=== PATIENT | male | born 1980 | race Caucasian/White ===

== ENCOUNTER 2017-05-08 18:06 | Emergency (ER) | payer OTHER ==
[~2017-05-08] VITALS: Ht 180.3 cm; Wt 72.7 kg
[2017-05-08 18:06] VITALS: BP 117/79
[2017-05-08] MEDS ORDERED: TYLE325T5 PO (18:25)
[2017-05-08] MEDS ORDERED: IBUPROFEN 600 MG TAB PO ONE (19:45)
--- NOTE | 2017-05-08 20:20 | REPUSA ---
Clinical history: Pain. Findings: Real-time ultrasound imaging of the testicles and scrotum was performed. The right testicle measures 4.2 x 2.7 x 3.1 cm. The left testicle measures 4.3 x 2.4 x 3.0 cm. The testicles demonstrat e normal echo texture and echogenicity. Normal color Doppler flow and arterial waveforms are seen lary aterally. However, there is slight increase vascularity in the left epididymis. There is a right-side d hydrocele. Impression: 1. Unremarkable ultrasound examination of the testicles. 2. Increased vascularity in the left epididymis suggest epididymitis 3. Right-sided hydrocele.
[2017-05-08] MEDS ORDERED: LIDOCAINE 1% MDV 20ML VIAL As Ordered ONE (20:42)
[2017-05-08] MEDS ORDERED: cefTRIAXone SOD 250 MG VIAL (J0696) IM ONE (20:45)
[2017-05-08] MEDS ORDERED: DOXYCYCLINE HYCLATE 100 MG TAB PO ONE (20:45)
[2017-05-08] MEDS ORDERED: DOXY100C37 PO (20:48)
== END 2017-05-08 21:26 | disposition home or self-care (01) ==
LOC: M ED 18:06
DX: N45.1 Epididymitis (principal); N43.3 Hydrocele, unspecified; R31.9 Hematuria, unspecified
CPT/HCPCS: 76870; 81001; 87491; 87591; 96372; 99283; J0696

== ENCOUNTER → 2017-07-23 | Outpatient (CLI) | payer OTHER ==
[~2017-07-23] MED LIST: DOXY100C37 PO; TYLE325T5 PO
--- NOTE | 2017-07-23 17:03 | REP ---
CT of the abdomen and pelvis without IV or bowel contrast: The visualized lung nathan are unremarkable. The unenhanced hepatic parenchyma, gallbladder, pancreas, spleen, adrenals and kidneys are unremarkable. There are no renal calculi. There is no hydronephrosis. There are no ureteral calculi. There are no bladder calculi. There is a small volume of bladder air anteriorly in the bladder, possibly from recent catheterization. There is no evidence of bladder bowel fistula by CT. However, these fistula can sometimes be quite small and difficult to identify. There is no bowel distension. Mesentery is unremarkable. Pelvis: The appendix is unremarkable except for appendicoliths. There are small linear metallic densities approximately 15 mm in length each two on the right and two the left. The on the right the superior most density is in the subcutaneous soft tissues adjacent to inguinal lymph nodes. The other linear density is the slightly inferior to this in the subcutaneous tissues adjacent to right inguinal nodes. On the left the two linear densities lie along the anterior margin of the pectineus muscle one at the mid muscle belly and the other at the lateral aspect of this muscle. These unusual linear densities are likely foreign bodies. There is no inflammation, abscess or mass on the right on the left associated with these linear densities. Impression: There is a small volume of air in the urinary bladder, likely from recent catheterization. There is no CT evidence of bladder bowel fistulization. There are four linear densities in the soft tissues of the anterior pelvic wall inferiorly as described in detail above. These are likely foreign bodies of uncertain significance. Otherwise, negative CT of the abdomen and pelvis. Signed by Phillip Arreola MD 07/23/2017 04:55 P
== END ==
LOC: M RAD 16:06
PROVIDERS: ATTEND Physician Assistant
DX: R10.2 Pelvic and perineal pain (principal); R31.9 Hematuria, unspecified

== ENCOUNTER 2018-11-11 13:09 | Inpatient (IN) | payer OTHER ==
[~2018-11-11] VITALS: Ht 180.3 cm; Wt 78.2 kg
[2018-11-11 14:40] VITALS: BP 116/70
[2018-11-11] MEDS: ACETAMINOPHEN TAB 650MG DOSE (2X325MG) PO PRN ×2 (17:19→21:37)
[2018-11-11] MEDS ORDERED: B121000T PO (17:53)
[2018-11-11] MEDS ORDERED: TOPI25CA PO (17:53)
[2018-11-11] MEDS ORDERED: RIZA5TAB PO (17:53)
[2018-11-11] MEDS ORDERED: DICL50TAB PO (17:53)
[2018-11-11] MEDS ORDERED: CAPS0.022 TOP (17:53)
[2018-11-11] MEDS ORDERED: ZOFR4TAB16 PO (17:53)
[2018-11-11] MEDS ORDERED: VITMTA PO (17:53)
[2018-11-11] MEDS ORDERED: DULO1CAP2 PO (17:53)
[2018-11-11] MEDS ORDERED: BUDE3CAP PO (17:53)
[2018-11-11] MEDS ORDERED: NORT25CA2 PO (17:53)
[2018-11-11] MEDS ORDERED: PILL CRUSHER/CUTTER 1 EACH XX PRN (18:15)
[2018-11-11 18:20] LABS: APPEARANCE, URINE CLEAR (CLEAR); BACTERIA, URINE AUTO NEGATIVE (NEGATIVE); BILIRUBIN, URINE AUTO NEGATIVE (NEGATIVE); BLOOD, URINE BLOOD NEGATIVE (NEGATIVE); COLOR, URINE STRAW (YELLOW); GLUCOSE, URINE (UA) AUTO NEGATIVE (NEGATIVE); KETONE, URINE AUTO NEGATIVE (NEGATIVE); LEUKOCYTE ESTERASE, URINE AUTO NEGATIVE (NEGATIVE); NITRITE, URINE AUTO NEGATIVE (NEGATIVE); PROTEIN, URINE AUTO NEGATIVE (NEGATIVE); RBC, URINE AUTO 2 /HPF (0-3); SPECIFIC GRAVITY URINE AUTO 1.008 (1.002-1.035); SQUAMOUS EPITHELIAL CELL UR AU 0 /HPF (0-6); UROBILINOGEN, URINE AUTO 0.2 mg/dL (0.0-2.0); WBC, URINE AUTO 1 /HPF (0-3)
[2018-11-11 19:35] LABS: FREE T4 0.87 NG/DL (0.76-1.46); THYROID STIMULATING HORMONE 1.36 uIU/ML (0.358-3.740)
[2018-11-11 19:36] LABS: TOTAL 25(OH) VITAMIN D 37.3 NG/ML (30.0-100.0)
[2018-11-11 20:00] VITALS: BP 110/76
[2018-11-11] MEDS: MIRTAZAPINE 15 MG TAB PO SCH (20:43)
[2018-11-11] MEDS: PANTOPRAZOLE 40MG TAB (PROTONIX) PO SCH (20:43)
[2018-11-11] MEDS: AMITRIPTYLINE 50 MG TAB PO SCH (20:43)
[2018-11-11] MEDS: PROPRANOLOL 10 MG TAB PO SCH (20:46)
[2018-11-11] MEDS ORDERED: traMADol 50 MG TAB PO ONE (23:30)
[2018-11-11] MEDS ORDERED: diphenhydrAMINE 25 MG CAP PO ONE (23:30)
[2018-11-12 06:00] VITALS: BP 103/56
[2018-11-12 07:18] LABS: BASO % 0.4 % (0.0-1.0); EOS # 0.4 10^3/uL (0.0-0.50); EOS % 7.2 % (0.0-3.0); HEMOGLOBIN 14.9 g/dl (13.5-17.5); LYMPH # 1.8 10^3/uL (1.5-4.5); LYMPH % 34.3 % (24.0-44.0); MEAN CORPUSCULAR HEMOGLOBIN 31.6 pg (27.0-33.0); MEAN CORPUSCULAR HGB CONC 36.3 g/dl (32.0-36.5); MEAN CORPUSCULAR VOLUME 86.9 fl (80.0-96.0); MONO # 0.3 10^3/uL (0.0-0.8); MONO % 6.2 % (0.0-5.0); NEUTROPHILS # 2.7 10^3/uL (1.8-7.7); NEUTROPHILS % 51.7 % (36.0-66.0); PLATELET COUNT, AUTOMATED 182 10^3/uL (150-450); RED BLOOD COUNT 4.72 10^6/uL (4.30-6.10); WHITE BLOOD COUNT 5.3 10^3/uL (4.0-10.0)
[2018-11-12 07:37] LABS: ERYTHROCYTE SEDIMENTATION RATE 4 mm/hr (0-15)
[2018-11-12 07:42] LABS: ALBUMIN 3.7 GM/DL (3.2-5.2); ALT/SGPT 24 U/L (12-78); BILIRUBIN,TOTAL 0.3 MG/DL (0.2-1.0); BLOOD UREA NITROGEN 15 MG/DL (7-18); C REACTIVE PROTEIN QUANTITATIV < 0.30 MG/DL (0.00-0.30); CALCIUM LEVEL 8.5 MG/DL (8.5-10.1); CARBON DIOXIDE LEVEL 24 MEQ/L (21-32); CHLORIDE LEVEL 109 MEQ/L (98-107); CREATININE FOR GFR 0.78 MG/DL (0.70-1.30); GLOMERULAR FILTRATION RATE > 60.0 (>60); GLUCOSE, FASTING 88 MG/DL (70-100); POTASSIUM SERUM 4.1 MEQ/L (3.5-5.1); SODIUM LEVEL 140 MEQ/L (136-145)
[2018-11-12] MEDS: PROPRANOLOL 10 MG TAB PO SCH ×3 (08:33→20:38)
--- NOTE | 2018-11-12 09:16 | CR.PDOC ---
General Date of Consultation: Nov 12, 2018 Consultation CONSULTATION REPORT FOR: Dr Win REASON FOR CONSULTATION: Medical Management ATTENDING: Dr. Ishmael Orozco PCP: Ev HPI: 38year old M admitted to ARU from home as per Dr Win related to polyneuropathy. There is no admission note available to me at this time. Hospitalist is consulted for medical management. 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 He was treated for GI illness and neurological symptoms. Symptoms were felt related to small fiber neuropathy. Symptoms of paresthesia and weakness have persisted since then. He had been evaluated by ID, Neurology and Cardiology with no definite diagnosis, d/c [facility] 10/06/18. Was apparently scheduled with Neurology at [facility] but states appt was cancelled. Pt was seen by Dr Williamson cardiology 11/08/18 and apparently being followed for possible POTS. No acute medical complaints today. Denies any fevers, chills, weakness, fatigue, Headache, Chest Pain, Shortness of breath, cough, palpitations, abdominal pain, N/V/D or changes in bowel or bladder habits. PMHx: PTSD migraine PARK OA chronic tinnitus GERD PSHX: none SOCHX: Resides in: 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 PE: GEN: 38yoM, appears stated age. Well-nourished, well developed. No acute distress. Alert and oriented x 3. Pleasant, interactive. HEENT: Normocephalic, atraumatic. Sclera are nonicteric. Conjunctiva without injection. Nose midline. No facial asymmetry. Moist mucous membranes. Neck supple, trachea midline. No lymphadenopathy or thyromegaly appreciated. CHEST: Regular rate and rhythm, +S1, +S2 LUNGS: Clear to auscultation bilaterally. No wheezes, rales, or rhonchi. Breathing appears symmetric and easy. Patient is speaking in full sentences. No accessory muscle use. ABD: Round, soft, non-tender, non-distended. +Bowel sounds throughout. No rebound or guarding. No costovertebral angle tenderness. EXT: No lower extremity edema appreciated. SKIN: [place], dry, warm. No rashes. A&P: 38year oldM admitted to ARU as per Dr Win related to polyneuropathy. 1. Peripheral Neuropathy. Mgmt as per CORKY, Dr Win. Seen by cardiology recently, Dr Williamson. Copy of his note is pending at this time. Continue outpt F/U. Monitor for POTS, monitor orthostatic VS. The pt was scheduled with Jeramie Hughes for neurology. Outpt f/u planned. D/W Dr Win, possibly consider Neurology Clt during admission. The pt was seen by ID 11/11/18, Dr Tyler appreciate any further recommendations. TSH WNL. VitB12/folate, Copper/Zinc pending. DVT prophylaxis as per ARU. 2. GERD. Continue PPI. 3. PTSD/Anxiety/insomnia Inderal/Remeron. Vital Signs/I&O Vital Signs Date Time Temp Pulse Resp B/P (MAP) Pulse Ox O2 Delivery O2 Flow Rate FiO2 11/12/18 08:33 70 103/56 11/12/18 06:00 96.9 16 95 Room Air I&O- Last 24 Hours up to 6 AM 11/12/18 06:00 Intake Total 480 ml Balance 480 ml Laboratory Data Labs 24H Laboratory Tests 2 11/11/18 17:36: 25-Hydroxy Vitamin D Total 37.3, Thyroid Stimulating Hormone (TSH) 1.360, Free Thyroxine 0.87 11/11/18 17:40: Urine Appearance CLEAR, Urine Color STRAW, Urine pH 6.0, Urine Specific [place] 1.008, Urine Protein NEGATIVE, Urine Glucose (UA) NEGATIVE, Urine Ketones NEGATIVE, Urine Urobilinogen 0.2, Urine Bilirubin NEGATIVE, Urine Leukocyte Esterase NEGATIVE, Urine Blood NEGATIVE, Urine Nitrite NEGATIVE, Urine WBC (Auto) 1, Urine RBC (Auto) 2, Urine Hyaline Casts (Auto) 0, Urine Bacteria (Auto) NEGATIVE, Urine Squamous Epithelial Cells 0, Urine Sperm (Auto) 11/11/18 19:20: 11/12/18 06:24: Immature Granulocyte % (Auto) 0.2, White Blood Count 5.3, Red Blood Count 4.72, Hemoglobin 14.9, Hematocrit 41.0L, Mean Corpuscular Volume 86.9, Mean Corpuscular Hemoglobin 31.6, Mean Corpuscular Hemoglobin Concent 36.3, Red Cell Distribution Width 11.9, Platelet Count 182, Neutrophils (%) (Auto) 51.7, Lymphocytes (%) (Auto) 34.3, Monocytes (%) (Auto) 6.2H, Eosinophils (%) (Auto) 7.2H, Basophils (%) (Auto) 0.4, Neutrophils # (Auto) 2.7, Lymphocytes # (Auto) 1.8, Monocytes # (Auto) 0.3, Eosinophils # (Auto) 0.4, Basophils # (Auto) 0.0, Nucleated Red Blood Cells % (auto) 0.0, Erythrocyte Sedimentation Rate 4, Anion Gap 7L, Glomerular Filtration Rate > 60.0, Blood Urea Nitrogen 15, Creatinine 0.78, Sodium Level 140, Potassium Level 4.1, Chloride Level 109H, Carbon Dioxide Level 24, Calcium Level 8.5, Aspartate Amino Transf (AST/SGOT) 15, Alanine Aminotransferase (ALT/SGPT) 24, Alkaline Phosphatase 77, Total Bilirubin 0.3, Total Protein 7.0, Albumin 3.7, C-Reactive Protein, Quantitative < 0.30, Albumin/Globulin Ratio 1.12 CBC/BMP Laboratory Tests 11/12/18 06:24 Red Blood Count 4.72, Mean Corpuscular Volume 86.9, Mean Corpuscular Hemoglobin 31.6, Mean Corpuscular Hemoglobin Concent 36.3, Red Cell Distribution Width 11.9, Neutrophils (%) (Auto) 51.7, Lymphocytes (%) (Auto) 34.3, Monocytes (%) (Auto) 6.2 H, Eosinophils (%) (Auto) 7.2 H, Basophils (%) (Auto) 0.4, Neutrophils # (Auto) 2.7, Lymphocytes # (Auto) 1.8, Monocytes # (Auto) 0.3, Eosinophils # (Auto) 0.4, Basophils # (Auto) 0.0, Calcium Level 8.5, Aspartate Amino Transf (AST/SGOT) 15, Alanine Aminotransferase (ALT/SGPT) 24, Alkaline Phosphatase 77, Total Bilirubin 0.3, Total Protein 7.0, Albumin 3.7 Microbiology Microbiology 11/11/18 Urine Culture, Received Pending Allergies Coded Allergies: No Known Allergies (Unverified , 05/08/17) Home Medications Scheduled Budesonide (Budesonide) 3 Mg Cap, 3 MG PO DAILY, (Reported) Cyanocobalamin (B12) 1,000 Mcg Tab, 1,000 MCG PO DAILY, (Reported) Diclofenac Sodium (Diclofenac Sodium Dr) 50 Mg Tab, 50 MG PO BID, (Reported) Duloxetine Hcl (Duloxetine HCl) 30 Mg Cap, 30 MG PO DAILY, (Reported) Multivitamins *[facility] STOCKED* (Thera M Plus *[facility] STOCK[facility]*) 1 Tab Tab, 1 TAB PO DAILY, (Reported) Nortriptyline HCl (Nortriptyline HCl) 25 Mg Cap, 25 MG PO QHS, (Reported) Rizatriptan Benzoate (Rizatriptan Benzoate) 5 Mg Tab, 5 MG PO DAILY, (Reported) Topiramate (Topiramate) 25 Mg Cap, 25 MG PO QPM, (Reported) Scheduled PRN Acetaminophen (Tylenol) 325 Mg Tab, 650 MG PO Q6H PRN for PAIN, (Reported) Capsaicin (Capsaicin) 0.025 % Cre, 1 DOSE TOP BID PRN for PAIN, (Reported) APPLY TO FEET AND SHINS NEEDED Ondansetron HCl (Zofran) 4 Mg Tab, 4 MG PO Q6H PRN for NAUSEA OR VOMITING, (Reported) Junie Turner Nov 12, 2018 09:16
[2018-11-12] MEDS: DULoxetine 30 MG CAP (CYMBALTA) PO SCH (12:01)
--- NOTE | 2018-11-12 13:07 | HPEPDOC ---
[employer] Note DATE OF ADMISSION: Nov 11, 2018 at 14:30 SOURCE OF ADMISSION INFORMATION: patient, [facility] and [place] [facility] CHIEF COMPLAINT: bilateral LE paresthesia and weakness HISTORY OF PRESENT ILLNESS: 38M pmh TBI in 2016, PTSD, migraines, and ETOH abuse who was deployed in [place] when he developed a diarrhea illness with a petechial rash that he reports lasted from March until May 2018 for which he was given Ciprofloxacin and Flagyl twice without resolution of his symptoms. Infectious work-up was negative for his GI complaints including stool for O&P. EGD performed 05-02-19 with gastric and duodenal biopsies were negative. Of not he was treated for [place] Spotted Fever with Doxycycline in April 2018. In May he was treated with oral budesonide for presumed colitis, but in June was still having diarrhea and bloody vomiting with headaches with dizziness.At that same time he developed pins and needles in his feet that ascended to just above his knees and from his finger tips to forearms that now is a burning deep ache with weakness and was referred to Dr. 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 Cervical MRI showed degenerative changes at C4-5 and C5-6. He reported dizziness with ambulation and at rest for which tilt-table test was positive for orthostatic tachycardia without significant hypotension He wore an external lunchroom monitor for 7 days and is awaiting the results from cardiology. He returned to [place] in September where his symptoms got worse and in October he was evaluated at [facility] outpatient cardiology and ID clinic for further work- up. He was deemed medically appropriate for admission to ARU for gait and ADL impairment on 11-11-18. Upon arrival he reports a persistent mental fog, decreased appetite, and diminished ability to ambulate and has been wheelchair bound with persistent pain in his lower extremities. He was a vegetarian for 25 years and recently became vegan in June. He denies dysphagia or bowel/blad lilly incontinence. His medical records are managed by his patient case manager Rylie Bermudez. REVIEW OF SYSTEMS: The following is a completed review of systems and has been reviewed. Review of systems otherwise unremarkable. PAIN: Patient self reports bilateral LE and bilateral hand/forearm paresthesias EYES: Negative for recent vision changes EARS, NOSE, & THROAT: no dysphagia, no rhinorrhea CARDIOVASCULAR: no chest pain or palpitations PULMONARY: Negative. Denies shortness of breath GASTROINTESTINAL: Negative for diarrhea, +nausea GENITOURINARY: Negative for dysuria or incontinence MUSCULOSKELETAL: Bilat LE weakness NEUROLOGICAL: bilateral LE and bilateral hand/forearm paresthesias HEMATOLOGICAL: + bilat LE petechiae SKIN: intact PSYCHIATRIC: denies anxiety or depression, +insomnia All other review of systems found to be negative. PAST MEDICAL HISTORY: TBI in 2016, PTSD, migraines, and ETOH abuse PAST SURGICAL HISTORY: EGD ALLERGIES: Please see below. MEDICATIONS: Please see below. SOCIAL HISTORY: Lives with , active duty , uses chewing tobacco, denies ETOH or illicit drug use DIET: Vegan PHYSICAL EXAMINATION: VITAL SIGNS: Please see below. GENERAL: Pleasant and cooperative. No acute distress. Anxious, pale HEENT: PERRL. Extraocular movements intact. Clear conjunctiva CARDIOVASCULAR: Regular rate and rhythm. No murmurs, rubs, or gallops LUNGS: Clear to auscultation bilaterally. No wheezes. No rhonchi ABDOMEN: Soft, nontender, nondistended. Positive bowel sounds. Normal active bowel sounds NEUROLOGICAL: Alert and oriented times three. Cranial nerves II through XII grossly intact. Decreased sensation to light touch in dermatomes T10-S2 and C5- T1 bilaterally EXTREMITIES: 5\5 strength bilateral upper extremities. 5\5 strength bilateral ankle Df and EHL, 4-/5 bilateral hip flexors and knee extensors and SKIN: bilateral feet with minimal petechia, intact (negative Dee's bilat) IMAGING: Imaging documentation personally reviewed by record FUNCTIONAL STATUS: Premorbid: Independent with all activities of daily life as well as mobility On Admission: Min assist for functional transfers and ambulation, primarily uses wheelchair. GOALS: Independent with ambulation without AD, independent with dressing, bathi ng, grooming, pain management, medical optimization, family training, assess for DMEs. 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 PLAN: 1. Rehab: PT/oT, assess for DMEs 2. Cardiac: monitor for orthostatic tachycardia syndrome, low dose Propranolol ordered for anxiety and heart rate control, medicine consulted -will f/u Dr. Williamson's notes from recent visit, will f/u with case monitor for lunchroom monitor results-stable at this time -Is in the process of getting worked up for POTS at [facility], has follow-up in December 2018, awaiting results from recent Zio patch placement, work-up to be continued in [place] outpatient 3. Neuro: recently diagnosed small fiber neuropathy on affecting Bilateral LE in stocking-glove pattern and UE, possibly secondary to an acute versus chronic inflammatory demyelinating polyneuropathy- will request skin biopsy and NCS/EMG studies from his case monitor Rylie Bermudez ([phone]) and consider inpatient neuro consult-On September 17 Dr. Hernandez his neurologist had ordered sensory neuropathy antibody panel which the results were processed incorrectly and he needs this to be re-ordered to determine if his neuropathy is an immunological process, will order here -heavy metal tox screen negative -currently doing metabolic work-up- checking thyroid, vitamin B, and vitamin D l evels -manage neuropathic pain with TCAs- Elavil 50mg qHS and Cymbalta 4. ID: protracted GI illness from March-May 2018 with negative infectious workup, s/p doxycycline for RMSF- will recheck stool O&P, ID consulted, recs appreciated -will manage nausea with Protonix at this time 5. Insomnia/Psych: Remeron for appetite enhancement and sleep and anxiety 6. DVT ppx- CLYDE stockings 7. Dispo: TBD POST ADMISSION PHYSICIAN EVALUATION: Medical and functional status: Description of medical status, medical assessment: As above. Rehabilitation diagnosis and current and prior cold morbid medical conditions as above. Risk of complications and plans to mitigate them as above. Description of functional status current status is as above. Prior status as above. Status compared to preadmission: There are no clinically significant differences between the patient's current status and the information described on the preadmission screening document. Treatment plan anticipated: Treatment plan is as described above. Required dis ciplines including physical therapy, occupational therapy, others as noted above Intensity of services: 3 hours a day, 6 days a week. Special considerations: There are no specific special or safety considerations that would likely preclude immediate implementation of an intensive rehabilitation program or subsequently influence the plan of care ATTESTATION: Considering all the information above, it is my best judgment that this patient requires intensive rehabilitation therapy as described above and an inpatient hospital environment due to the complexity of nursing, medical, and rehabilitation needs required by the patient. Furthermore, this patient can reasonably be expected to participate in an benefit from an inpatient rehabilitation stay with an interdisciplinary team approach to the delivery of rehabilitation care under the direction and supervision of rehabilitation physician. PROGNOSIS: Good ESTIMATED LENGTH OF STAY:14-18 days. PROJECTED DISCHARGE DESTINATION: Home with family support and any durable medical equipment required to increase functional safety and mobility. TIME SPENT COUNSELING AND COORDINATING INITIAL CARE: Greater than 70 minutes. Vital Signs Vital Sign - Last 24 Hours 11/11/18 11/11/18 11/11/18 11/11/18 14:40 20:00 20:46 23:30 Temp 97.8 97.9 Pulse 68 73 73 Resp 20 18 18 B/P (MAP) 116/70 (85) 110/76 (87) 110/76 Pulse Ox 97 98 11/12/18 11/12/18 06:00 08:33 Temp 96.9 Pulse 70 70 Resp 16 B/P (MAP) 103/56 (72) 103/56 Pulse Ox 95 O2 Delivery Room Air Laboratory Data CBC/BMP Laboratory Tests 11/12/18 06:24 Red Blood Count 4.72, Mean Corpuscular Volume 86.9, Mean Corpuscular Hemoglobin 31.6, Mean Corpuscular Hemoglobin Concent 36.3, Red Cell Distribution Width 1 1.9, Neutrophils (%) (Auto) 51.7, Lymphocytes (%) (Auto) 34.3, Monocytes (%) (Auto) 6.2 H, Eosinophils (%) (Auto) 7.2 H, Basophils (%) (Auto) 0.4, Neutrophils # (Auto) 2.7, Lymphocytes # (Auto) 1.8, Monocytes # (Auto) 0.3, Eosinophils # (Auto) 0.4, Basophils # (Auto) 0.0, Calcium Level 8.5, Aspartate Amino Transf (AST/SGOT) 15, Alanine Aminotransferase (ALT/SGPT) 24, Alkaline Phosphatase 77, Total Bilirubin 0.3, Total Protein 7.0, Albumin 3.7 Labs 24H Laboratory Tests 2 11/11/18 17:36: 25-Hydroxy Vitamin D Total 37.3, Thyroid Stimulating Hormone (TSH) 1.360, Free Thyroxine 0.87 11/11/18 17:40: Urine Appearance CLEAR, Urine Color STRAW, Urine pH 6.0, Urine Specific [place] 1.008, Urine Protein NEGATIVE, Urine Glucose (UA) NEGATIVE, Urine Ketones NEGATIVE, Urine Urobilinogen 0.2, Urine Bilirubin NEGATIVE, Urine Leukocyte Esterase NEGATIVE, Urine Blood NEGATIVE, Urine Nitrite NEGATIVE, Urine WBC (Auto) 1, Urine RBC (Auto) 2, Urine Hyaline Casts (Auto) 0, Urine Bacteria (Auto) NEGATIVE, Urine Squamous Epithelial Cells 0, Urine Sperm (Auto) 11/11/18 19:20: 11/12/18 06:24: Immature Granulocyte % (Auto) 0.2, White Blood Count 5.3, Red Blood Count 4.72, Hemoglobin 14.9, Hematocrit 41.0L, Mean Corpuscular Volume 86.9, Mean Corpuscular Hemoglobin 31.6, Mean Corpuscular Hemoglobin Concent 36.3, Red Cell Distribution Width 11.9, Platelet Count 182, Neutrophils (%) (Auto) 51.7, Lymphocytes (%) (Auto) 34.3, Monocytes (%) (Auto) 6.2H, Eosinophils (%) (Auto) 7.2H, Basophils (%) (Auto) 0.4, Neutrophils # (Auto) 2.7, Lymphocytes # (Auto) 1.8, Monocytes # (Auto) 0.3, Eosinophils # (Auto) 0.4, Basophils # (Auto) 0.0, Nucleated Red Blood Cells % (auto) 0.0, Erythrocyte Sedimentation Rate 4, Anion Gap 7L, Glomerular Filtration Rate > 60.0, Blood Urea Nitrogen 15, Creatinine 0.78, Sodium Level 140, Potassium Level 4.1, Chloride Level 109H, Carbon Dioxide Level 24, Calcium Level 8.5, Aspartate Amino Transf (AST/SGOT) 15, Alanine Aminotransferase (ALT/SGPT) 24, Alkaline Phosphatase 77, Total Bilirubin 0.3, Total Protein 7.0, Albumin 3.7, C-Reactive Protein, Quantitative < 0.30, Albumin/Globulin Ratio 1.12 Microbiology Microbiology 11/11/18 Urine Culture - Final, Complete Home Medications Scheduled Budesonide (Budesonide) 3 Mg Cap, 3 MG PO DAILY, (Reported) Cyanocobalamin (B12) 1,000 Mcg Tab, 1,000 MCG PO DAILY, (Reported) Diclofenac Sodium (Diclofenac Sodium Dr) 50 Mg Tab, 50 MG PO BID, (Reported) Duloxetine Hcl (Duloxetine HCl) 30 Mg Cap, 30 MG PO DAILY, (Reported) Multivitamins *[facility] STOCKED* (Thera M Plus *[facility]OCK[facility]*) 1 Tab Tab, 1 TAB PO DAILY, (Reported) Nortriptyline HCl (Nortriptyline HCl) 25 Mg Cap, 25 MG PO QHS, (Reported) Rizatriptan Benzoate (Rizatriptan Benzoate) 5 Mg Tab, 5 MG PO DAILY, (Reported) Topiramate (Topiramate) 25 Mg Cap, 25 MG PO QPM, (Reported) Scheduled PRN Acetaminophen (Tylenol) 325 Mg Tab, 650 MG PO Q6H PRN for PAIN, (Reported) Capsaicin (Capsaicin) 0.025 % Cre, 1 DOSE TOP BID PRN for PAIN, (Reported) APPLY TO FEET AND SHINS NEEDED Ondansetron HCl (Zofran) 4 Mg Tab, 4 MG PO Q6H PRN for NAUSEA OR VOMITING, (Reported) Allergies Coded Allergies: No Known Allergies (Unverified , 05/08/17) NABEEL WINTER MD Nov 12, 2018 12:40
[2018-11-12 14:00] VITALS: BP 118/75
[2018-11-12] MEDS: PREGABALIN 50 MG CAP (LYRICA) PO SCH ×2 (15:08→20:38)
--- NOTE | 2018-11-12 18:41 | IPNPDOC ---
PM&R Progress Note DATE OF SERVICE: Nov 12, 2018 Lead Ramp Agent Progress Note Subjective: Patient reporting nausea without vomiting and uncontrolled paresthesias, would like to add medication. He was able to participate in therapy today. REVIEW OF SYSTEMS: The following is a completed review of systems and has been reviewed. Review of systems otherwise unremarkable. PAIN: Patient self reports bilateral LE and bilateral hand/forearm paresthesias EYES: Negative for recent vision changes EARS, NOSE, & THROAT: no dysphagia, no rhinorrhea CARDIOVASCULAR: no chest pain or palpitations PULMONARY: Negative. Denies shortness of breath GASTROINTESTINAL: Negative for diarrhea, +nausea GENITOURINARY: Negative for dysuria or incontinence MUSCULOSKELETAL: Bilat LE weakness NEUROLOGICAL: bilateral LE and bilateral hand/forearm paresthesias HEMATOLOGICAL: + bilat LE petechiae SKIN: intact PSYCHIATRIC: denies anxiety or depression, +insomnia All other review of systems found to be negative. PHYSICAL EXAMINATION: VITAL SIGNS: Please see below. GENERAL: Pleasant and cooperative. No acute distress. Anxious, pale HEENT: PERRL. Extraocular movements intact. Clear conjunctiva CARDIOVASCULAR: Regular rate and rhythm. No murmurs, rubs, or gallops LUNGS: Clear to auscultation bilaterally. No wheezes. No rhonchi ABDOMEN: Soft, nontender, nondistended. Positive bowel sounds. Normal active bowel sounds NEUROLOGICAL: Alert and oriented times three. Cranial nerves II through XII grossly intact. Decreased sensation to light touch in dermatomes T10-S2 and C5- T1 bilaterally -negative Babinski bilat, 2+ patella and 1+achilles bilat -2+ biceps, brachioradialis EXTREMITIES: 5\5 strength bilateral upper extremities. 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 PLAN: 1. Rehab: PT/oT, assess for DMEs, inconsistencies noted on physical exam and during therapy session- patient able to activate bilateral ankle DF and EHL muscles when tested together, but appears to give way when tested individually- able to ambulate roughly 30F with RW -will add vestibular therapy sessions for dizziness 2. Cardiac: monitor for orthostatic tachycardia syndrome, low dose Propranolol ordered for anxiety and heart rate control, medicine consulted -will f/u Dr. Williamson's notes from recent visit, will f/u with family caseworker for compliance monitor results-clinically stable at this time -Is in the process of getting worked up for POTS at [facility], has follow-up in December 2018, awaiting results from recent Zio patch placement, work-up to be continued in [place] outpatient 3. Neuro: recently diagnosed small fiber neuropathy on affecting Bilateral LE in stocking-glove pattern and UE, possibly secondary to an acute versus chronic inflammatory demyelinating polyneuropathy- received documents to support positive skin biopsy for small fiber neuropathy -NCS/EMG studies significant for ulnar neuropathy, no F wave delay or conduction blocks or slowing noted in LE to suggest an active AIDP, confirmed with family caseworker Rylie Bermudez ([phone]) that Dr. Hernandez at [facility] had ordered a sensory neuropathy antibody panel in August which the results were processed incorrectly and he needs this to be re-ordered to determine if his neuropathy is an immunological process requiring IVIG treatment, per patient he has progressively gotten weaker and his paresthesias have gotten worse since the Fall, however he has not experienced worsening of symptoms while on ARU, he would like a complete neurological work-up to be done, will discuss with family caseworker possibility of this work-up getting done at [facility] on their inpatient unit in the event he does require immunoglobulin therapy and closer monitoring -heavy metal tox screen negative -currently doing metabolic work-up- checking thyroid, vitamin B/MMA, and vitamin D levels -manage neuropathic pain with TCAs- Elavil 50mg qHS and Cymbalta, will add Lyrica, patient reports his paresthesias are not getting worse since his admission 4. ID: protracted GI illness from March-May 2018 with negative infectious workup, s/p doxycycline for RMSF- will recheck stool O&P, ID consulted, recs appreciated -will manage nausea with Protonix at this time 5. Insomnia/Psych: Remeron for appetite enhancement and sleep and anxiety 6. DVT ppx- CLYDE stockings 7. Dispo: TBD Allergies Coded Allergies: No Known Allergies (Unverified , 05/08/17) Vital Signs Vital Signs Date Time Temp Pulse Resp B/P (MAP) Pulse Ox O2 Delivery O2 Flow Rate FiO2 11/12/18 15:08 78 122/79 11/12/18 14:00 98.3 16 97 Room Air Laboratory Data CBC/BMP Laboratory Tests 11/12/18 06:24 Red Blood Count 4.72, Mean Corpuscular Volume 86.9, Mean Corpuscular Hemoglobin 31.6, Mean Corpuscular Hemoglobin Concent 36.3, Red Cell Distribution Width 11.9, Neutrophils (%) (Auto) 51.7, Lymphocytes (%) (Auto) 34.3, Monocytes (%) (Auto) 6.2 H, Eosinophils (%) (Auto) 7.2 H, Basophils (%) (Auto) 0.4, Neutrophils # (Auto) 2.7, Lymphocytes # (Auto) 1.8, Monocytes # (Auto) 0.3, Eosinophils # (Auto) 0.4, Basophils # (Auto) 0.0, Calcium Level 8.5, Aspartate Amino Transf (AST/SGOT) 15, Alanine Aminotransferase (ALT/SGPT) 24, Alkaline Phosphatase 77, Total Bilirubin 0.3, Total Protein 7.0, Albumin 3.7 Labs 24H Laboratory Tests 2 11/11/18 19:20: 11/12/18 06:24: Immature Granulocyte % (Auto) 0.2, White Blood Count 5.3, Red Blood Count 4.72, Hemoglobin 14.9, Hematocrit 41.0L, Mean Corpuscular Volume 86.9, Mean Corpuscular Hemoglobin 31.6, Mean Corpuscular Hemoglobin Concent 36.3, Red Cell Distribution Width 11.9, Platelet Count 182, Neutrophils (%) (Auto) 51.7, Lymphocytes (%) (Auto) 34.3, Monocytes (%) (Auto) 6.2H, Eosinophils (%) (Auto) 7.2H, Basophils (%) (Auto) 0.4, Neutrophils # (Auto) 2.7, Lymphocytes # (Auto) 1.8, Monocytes # (Auto) 0.3, Eosinophils # (Auto) 0.4, Basophils # (Auto) 0.0, Nucleated Red Blood Cells % (auto) 0.0, Erythrocyte Sedimentation Rate 4, Anion Gap 7L, Glomerular Filtration Rate > 60.0, Blood Urea Nitrogen 15, Creatinine 0.78, Sodium Level 140, Potassium Level 4.1, Chloride Level 109H, Carbon Dioxide Level 24, Calcium Level 8.5, Aspartate Amino Transf (AST/SGOT) 15, Alanine Aminotransferase (ALT/SGPT) 24, Alkaline Phosphatase 77, Total Bilirubin 0.3, Total Protein 7.0, Albumin 3.7, C-Reactive Protein, Quantitative < 0.30, Albumin/Globulin Ratio 1.12 Microbiology Microbiology 11/11/18 Urine Culture - Final, Complete Current Medications Current Medications Current Medications Acetaminophen (Tylenol Tab) 650 mg Q4HP PRN PO fever/MILD PAIN (PS 1-4) Last administered on 11/11/18 21:37; Start 11/11/18 at 13:45 Amitriptyline HCl (Elavil) 50 mg QHS PO Last administered on 11/11/18at 20:43; Start 11/11/18 at 21:00 Duloxetine HCl (Cymbalta) 30 mg DAILY PO Last administered on 11/12/18at 12:01; Start 11/12/18 at 12:00 Home Med (Med Rec Complete!) ASDIRECTED XX ; Start 11/11/18 at 18:00; Stop 11/11/18 at 18:00; Status DC Mirtazapine (Remeron) 15 mg QPM PO Last administered on 11/11/18at 20:43; Start 11/11/18 at 21:00 Pantoprazole Sodium (Protonix) 40 mg QHS PO Last administered on 11/11/18at 20:43; Start 11/11/18 at 21:00 Pregabalin (Lyrica) 50 mg BID PO Last administered on 11/12/18at 15:08; Start 11/12/18 at 14:30 Propranolol HCl (Inderal) 5 mg TID PO Last administered on 11/12/18 15:08; Start 11/11/18 at 21:00 NABEEL WINTER MD Nov 12, 2018 18:41
[2018-11-12 20:00] VITALS: BP 121/80
[2018-11-12] MEDS: PANTOPRAZOLE 40MG TAB (PROTONIX) PO SCH (20:38)
[2018-11-12] MEDS: AMITRIPTYLINE 50 MG TAB PO SCH (20:38)
[2018-11-12] MEDS: MIRTAZAPINE 15 MG TAB PO SCH (20:38)
[2018-11-13 06:00] VITALS: BP 111/76
[2018-11-13] MEDS: PREGABALIN 50 MG CAP (LYRICA) PO SCH ×2 (09:37→22:00)
[2018-11-13] MEDS: DULoxetine 30 MG CAP (CYMBALTA) PO SCH (09:37)
[2018-11-13] MEDS: ACETAMINOPHEN TAB 650MG DOSE (2X325MG) PO PRN ×2 (09:38→22:26)
[2018-11-13] MEDS: PROPRANOLOL 10 MG TAB PO SCH ×3 (09:44→22:00)
--- NOTE | 2018-11-13 12:34 | IPN ---
DATE: 11/13/2018 Initial consultation was done in the outpatient office and will be added to the chart. Radames is a 38-year-old gentleman who was deployed to [facility] in February 2018 somewhere in March to May he developed a bloody diarrhea associated with fever, chills, nausea and vomiting. Following that he progressively got worse with development of a rash with petechiae around his ankle. He showed me a picture of that and started having worsening neuropathy with pins and needles from his fingers all the way above his elbow was repeat all the way to his mid thighs. Since then he has progressively gotten worse. He went to [facility] where he was evaluated and he came back to [place], sent to [facility] where he had 2 months of different consultations with skin biopsies that confirmed small fiber neuropathy. The patient also had orthostatic tachycardia. Over the past 6 weeks he is now wheelchair dependent. He feels his thighs do not support his weight and if he flexes his knee he feels like he is going to fall. He is vegan since June, previous to that he was vegetarian. He denies any trouble swallowing. No cough or shortness of breath. No fever or chills since at least 3-4 months. The patient was treated with doxycycline when he was in [facility] 100 mg daily for at least a couple months and that he was given 100 mg twice a day for 10 days when a serology was positive for [place] Spotted Fever. PHYSICAL EXAMINATION: Heart is normal S1-S2, no murmurs, rubs or gallops. Lungs are clear. No wheezes, rales, or rhonchi. Abdomen is soft, nontender, no hepatosplenomegaly. Extremities: No clubbing, cyanosis or edema. Neurologic exam: Cranial nerves intact. Decrease sensation to light touch lower extremities and hands. Motor strength he has weak hip flexors 4- bilaterally and weak knee extension. The patient is in a wheelchair. He has small petechiae around the feet. LABORATORY DATA: White count 5.3, hemoglobin 14.9, hematocrit 41, platelets 182, 51% neutrophils, 34% lymphocytes, 6% monocytes, 7% eosinophils. ESR 4, sodium 140, potassium 4.1, chloride 109, bicarb 24, BUN 15, creatinine 0.78, glucose 88, calcium 8.5, bilirubin 0.3, AST 15, ALT 24, alk phos 77, CRP less than 0.3, total protein 7, albumin 3.7, vitamin B6 pending. Vitamin B12 1631. Vitamin D 1237. TSH 1.36. Free T4 0.87. Urine culture negative. Urinalysis one white cell, two red cells. MEDICATIONS: - Lyrica 50 mg by mouth twice a day, just started by Dr. Win - duloxetine 30 mg by mouth daily - Protonix 40 mg by mouth at bedtime - amitriptyline 50 mg by mouth at bedtime - mirtazapine 15 mg by mouth every evening - Tylenol as needed ALLERGIES: No known drug allergies. No imaging done. IMPRESSION: This is a 38-year-old gentleman who has evidence of small vessel small fiber neuropathy of upper and lower extremities. This seemed to have happened after an infectious illness that occurred in [facility]. This is illness is not consistent with Lyme disease even though his Lyme titer as an outpatient showed 2 out of 10 positive IgG bands but no IgM bands. The patient has received over 60 days of doxycycline. Also [place] Spotted Fever serology was positive that also has been treated. I am not convinced these are the etiology of his illness, they do not present usually with a gastrointestinal (GI) illness. Other infection that could happen in [place] could be chikungunya although chikungunya usually is more associated with arthritis than polyneuropathy but has many different manifestation of illness with relapsing and remitting course of illness. He does have some mild eosinophilia and therefore parasitic infection needs to be ruled out. PLAN: We will obtain ova and parasite by microscopy as well as a GI panel. Repeating Lyme titer, [place] Spotted Fever and chikungunya titer was obtained. We will discuss the case with infectious disease at [facility] who already has evaluated the patient. We will continue to follow.
--- NOTE | 2018-11-13 14:34 | IPNPDOC ---
Date Seen The patient was seen on 11/13/18. Progress Note HPI: 38year old M admitted to ARU from home as per Dr Win related to polyneuropathy. There is no admission note available to me at this time. Hospitalist is consulted for medical management. As per pre admission screening paperwork, the pt was deployed to [place] and developed BLE/BUE paresthesia, weakness and was medi vac to [facility] 06/04/18. He was treated for GI illness and neurological symptoms. Symptoms were felt related to small fiber neuropathy. Symptoms of paresthesia and weakness have persisted since then. He had been evaluated by ID, Neurology and Cardiology with no definite diagnosis, d/c [facility] 10/06/18. Was apparently scheduled with Neurology at [facility] but states appt was cancelled. Pt was seen by Dr Williamson cardiology 11/08/18 and apparently being followed for possible POTS. No acute medical complaints today. The pt states strength and paresthesia has been unchanged. Denies any fevers, chills, Headache, Chest Pain, Shortness of breath, cough, palpitations, abdominal pain, N/V/D or changes in bowel or bladder habits. PMHx: PTSD migraine PARK OA chronic tinnitus GERD PSHX: none PE: GEN: 38yoM, appears stated age. Well-nourished, well developed. Alert and oriented x 3. HEENT: Normocephalic, atraumatic. Sclera are nonicteric. Conjunctiva without injection. Nose midline. No facial asymmetry. Moist mucous membranes. CHEST: Regular rate and rhythm, +S1, +S2 LUNGS: Clear to auscultation bilaterally. No wheezes, rales, or rhonchi. ABD: Round, soft, non-tender, non-distended. +Bowel sounds throughout. No rebound or guarding. No costovertebral angle tenderness. EXT: No lower extremity edema appreciated. SKIN: [place], dry, warm. No rashes. A&P: 38year oldM admitted to ARU as per Dr Win related to polyneuropathy. 1. Peripheral Neuropathy. Mgmt as per ARU, Dr Win. Seen by cardiology recently, Dr Williamson. Copy of his note is pending at this time. Continue outpt F/U. Monitor for POTS, monitor orthostatic VS. The pt was scheduled with [facility] for neurology. Outpt f/u planned. D/W Dr Win, possibly consider Neurology Clt during admission. The pt was seen by ID 11/11/18, Dr Tyler appreciate recommendations. Further testing pending at this time including ova and parasite by microscopy as well as repeating Lyme titer, [place] Spotted Fever and chikungunya titer. ID is planning to discuss the case with infectious disease at [facility] who already has evaluated the patient. TSH WNL. VitB12/folate, Copper/Zinc pending. MRI Thoracic/LS pending. DVT prophylaxis as per ARU. 2. GERD. Continue PPI. 3. PTSD/Anxiety/insomnia Inderal/Remeron. VS, I&O, 24H, Fishbone Vital Signs/I&O Vital Signs Date Time Temp Pulse Resp B/P (MAP) Pulse Ox O2 Delivery O2 Flow Rate FiO2 11/13/18 09:44 72 100/78 11/13/18 06:00 97.5 18 98 Room Air I&O- Last 24 Hours up to 6 AM 11/13/18 06:00 Intake Total 1125 ml Balance 1125 ml Laboratory Data 24H LABS Laboratory Tests 2 11/13/18 11:50: 11/13/18 11:52: 11/13/18 13:35: Microbiology Microbiology 11/13/18 Gastrointestinal Tract Panel (PCR), Received Pending 11/11/18 Urine Culture - Final, Complete Junie Turner Nov 13, 2018 14:34
[2018-11-13 14:45] VITALS: BP 124/84
--- NOTE | 2018-11-13 20:46 | IPNPDOC ---
PM&R Progress Note DATE OF SERVICE: Nov 13, 2018 Clinical Services Director Progress Note Subjective: Patient reporting slight improvement in his endurance and was able to do exercise in parallel bars today. Patient educated on importance of letting all providers know if his weakness gets worse or his paresthesias start to advance up his legs or arms in which case he would need to be transferred to inpatient setting. He denies any worsening of symptoms at this time. REVIEW OF SYSTEMS: The following is a completed review of systems and has been reviewed. Review of systems otherwise unremarkable. PAIN: Patient self reports bilateral LE and bilateral hand/forearm paresthesias EYES: Negative for recent vision changes EARS, NOSE, & THROAT: no dysphagia, no rhinorrhea CARDIOVASCULAR: no chest pain or palpitations PULMONARY: Negative. Denies shortness of breath GASTROINTESTINAL: Negative for diarrhea, +nausea GENITOURINARY: Negative for dysuria or incontinence MUSCULOSKELETAL: Bilat LE weakness NEUROLOGICAL: bilateral LE and bilateral hand/forearm paresthesias HEMATOLOGICAL: + bilat LE petechiae SKIN: intact PSYCHIATRIC: denies anxiety or depression, +insomnia All other review of systems found to be negative. PHYSICAL EXAMINATION: VITAL SIGNS: Please see below. GENERAL: Pleasant and cooperative. No acute distress. Anxious, pale HEENT: PERRL. Extraocular movements intact. Clear conjunctiva CARDIOVASCULAR: Regular rate and rhythm. No murmurs, rubs, or gallops LUNGS: Clear to auscultation bilaterally. No wheezes. No rhonchi ABDOMEN: Soft, nontender, nondistended. Positive bowel sounds. Normal active bowel sounds NEUROLOGICAL: Alert and oriented times three. Cranial nerves II through XII grossly intact. Decreased sensation to light touch in dermatomes T10-S2 and C5- T1 bilaterally -negative Babinski bilat, 2+ patella and 1+achilles bilat -2+ biceps, brachioradialis EXTREMITIES: 5\5 strength bilateral upper extremities. 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 PLAN: 1. Rehab: PT/oT, assess for DMEs, inconsistencies noted on physical exam and d uring therapy session- patient able to activate bilateral ankle DF and EHL muscles when tested together, but appears to give way when tested individually- able to ambulate roughly 30F with RW -able to flex right knee while in one legged (left) standing position, but then when asked to actively flex his knee as an isolated movement was unable to do it -continue vestibular therapy sessions for dizziness 2. Cardiac: monitor for orthostatic tachycardia syndrome, Zio patch results positive for AVB and periods of bradycardia to mid-20s, will hold beta-miriam and will consider inpatient cardiology consult if symptomatic, medicine consult ed -Dr. Williamson's notes from recent visit do not show AVB on EKG, will f/u with returned case inspector for further work-up with [facility] cardiologists -Is in the process of getting worked up for POTS at [facility], has follow-up in December 2018- no clinical symptoms thus far on ARU 3. Neuro: recently diagnosed small fiber neuropathy on affecting Bilateral LE in stocking-glove pattern and UE, possibly secondary to an acute versus chronic inflammatory demyelinating polyneuropathy- received documents to support posit johnny skin biopsy for small fiber neuropathy -NCS/EMG studies significant for ulnar neuropathy, no F wave delay or conduction blocks or slowing noted in LE to suggest an active AIDP, confirmed with returned case inspector Rylie Bermudez ([phone]) that Dr. Hernandez at [facility] had ordered a sensory neuropathy antibody panel in August which the results were processed incorrectly and he needs this to be re-ordered to determine if his neuropathy is an immunological process requiring IVIG treatment, per patient he has progressively gotten weaker and his paresthesias have gotten worse since the Fall, however he has not experienced worsening of symptoms while on ARU, he would like a complete neurological work-up to be done -I am in in active discussion with Leilani Cardona returned case inspector regarding possibility of this work-up getting done at [facility] on their inpatient unit in the event he does require immunoglobulin therapy and closer monitoring, will discuss his case with Dr. Hernandez hopefully tomorrow and will urge transfer as he will receive a more complete work-up for his neuropathy and cardiac pathology there where most tests originated -if patient clinically declines either subjectively or objectively on exam, will transfer immediately off floor, but will continue to provide rehab at this time until dispo details completed, will consider in-house neurology evaluation if dispo plans not resolved by tomorrow- stable at this time -will order thoracic MR and Lumbar MR to rule out transverse myelitis or SC pathology to explain his symptoms although clinical exam not suggestive of upper motor neuron injury, discussed metal objects seen on CT abdomen/pelvic 2017 at [facility] with Hayes Medina who feels MR will be safe to go ahead with- I questioned patient about possible hx of IVDU out of concern for unknown metal in his arms given foreign objects in pelvic region, however patient denies ever putting needles into his arms and assured me he had no metal or foreign objects in his arms -heavy metal tox screen negative -currently doing metabolic work-up- checking thyroid, vitamin B/MMA, and vitamin D levels -manage neuropathic pain with TCAs- Elavil 50mg qHS and Cymbalta, continue Lyrica, patient reports his paresthesias are not getting worse since his admission 4. ID: protracted GI illness from March-May 2018 with negative infectious workup, s/p doxycycline for RMSF- will recheck stool O&P, ID consulted, recs appreciated -will manage nausea with Protonix at this time 5. Insomnia/Psych: Remeron for appetite enhancement and sleep and anxiety 6. DVT ppx- CLYDE stockings 7. Dispo: TBD, discussing discharge to inpatient [facility] with returned case inspector as he was inappropriately treated as an outpatient (rather than inpatient) for GI and neuropathy work-up, will need official and originally intended inpatient monitoring and completion of initially ordered immunological labs for persistent weakness and paresthesias. Unfortunately, [facility] is not an appropriate setting for work-up or for treatment of AIDP/CIDP, although it is an excellent setting for rehab for this diagnosis once identified and treated. He will also need more comprehensive cardiac monitoring for AVB and bradycardia noted on Ziopatch. Allergies Coded Allergies: No Known Allergies (Unverified , 05/08/17) Vital Signs Vital Signs Date Time Temp Pulse Resp B/P (MAP) Pulse Ox O2 Delivery O2 Flow Rate FiO2 11/13/18 16:00 71 129/84 11/13/18 14:45 97.4 16 95 Room Air Laboratory Data Labs 24H Laboratory Tests 2 11/13/18 11:50: 11/13/18 11:52: 11/13/18 13:35: Microbiology Microbiology 11/13/18 Gastrointestinal Tract Panel (PCR) - Final, Complete 11/11/18 Urine Culture - Final, Complete Current Medications Current Medications Current Medications Acetaminophen (Tylenol Tab) 650 mg Q4HP PRN PO fever/MILD PAIN (PS 1-4) Last administered on 11/13/18 09:38; Start 11/11/18 at 13:45 Amitriptyline HCl (Elavil) 50 mg QHS PO Last administered on 11/12/18 20:38; Start 11/11/18 at 21:00 Duloxetine HCl (Cymbalta) 30 mg DAILY PO Last administered on 11/13/18 09:37; Start 11/12/18 at 12:00 Home Med (Med Rec Complete!) ASDIRECTED XX ; Start 11/11/18 at 18:00; Stop 11/11/18 at 18:00; Status DC Mirtazapine (Remeron) 15 mg QPM PO Last administered on 11/12/18 20:38; Start 11/11/18 at 21:00 Pantoprazole Sodium (Protonix) 40 mg QHS PO Last administered on 11/12/18 20:38; Start 11/11/18 at 21:00 Pregabalin (Lyrica) 50 mg BID PO Last administered on 11/13/18 09:37; Start 11/12/18 at 14:30 Propranolol HCl (Inderal) 5 mg TID PO Last administered on 11/13/18 16:00; Start 11/11/18 at 21:00 NABEEL WINTER MD Nov 13, 2018 20:46
[2018-11-13 22:00] VITALS: BP 127/82
[2018-11-13] MEDS: MIRTAZAPINE 15 MG TAB PO SCH (22:00)
[2018-11-13] MEDS: AMITRIPTYLINE 50 MG TAB PO SCH (22:00)
[2018-11-13] MEDS: PANTOPRAZOLE 40MG TAB (PROTONIX) PO SCH (22:00)
[2018-11-14 06:00] VITALS: BP 113/76
[2018-11-14 08:17] LABS: ROCKY MTN SPOTTED FEVER IgM 0.32 index (0.00-0.89)
[2018-11-14] MEDS: PREGABALIN 50 MG CAP (LYRICA) PO SCH (08:30)
[2018-11-14] MEDS: DULoxetine 30 MG CAP (CYMBALTA) PO SCH (08:30)
[2018-11-14 08:31] VITALS: BP 117/76
[2018-11-14] MEDS: PROPRANOLOL 10 MG TAB PO SCH (08:31)
--- NOTE | 2018-11-14 08:58 | REP ---
MR THORACIC SPINE WITHOUT CONTRAST: HISTORY: Lower extremity weakness. There is no disc bulge or herniation. The spinal canal and neural foramina are patent. The spinal cord is normal in signal intensity. Normal signal intensity is present in the thoracic vertebral bodies. IMPRESSION: There is no disc bulge or herniation. Electronically Signed by Benito Medina MD 11/14/2018 09:02 A
--- NOTE | 2018-11-14 10:04 | REP ---
MR LUMBAR SPINE WITHOUT CONTRAST: HISTORY: Lower extremity weakness. Decreased signal intensity on T2-weighted images is present in the L4-5 and L5-S1 intervertebral discs. The discs are decreased in height. These findings are consistent with disc degeneration. There is no disc bulge or herniation at the L1-2 through L3-4 and L5-S1 levels. The nerves exit the neural foramina without compression. A diffuse disc bulge is present at the L4-5 level. This abuts the thecal sac. The L4 nerves exit the neural foramina without compression. The conus medullaris is normal in appearance terminating at the level of the L1-2 intervertebral disc. Normal signal intensity is present in the lumbar vertebral bodies. IMPRESSION: Diffuse disc bulge at the L4-5 level. This abuts the thecal sac. Electronically Signed by Benito Medina MD 11/14/2018 10:28 A
[2018-11-14 12:42] LABS: BASO % 0.2 % (0.0-1.0); EOS # 0.2 10^3/uL (0.0-0.50); EOS % 5.6 % (0.0-3.0); HEMATOCRIT 42.5 % (42.0-52.0); HEMOGLOBIN 15.6 g/dl (13.5-17.5); LYMPH # 1.1 10^3/uL (1.5-4.5); LYMPH % 26.1 % (24.0-44.0); MEAN CORPUSCULAR HEMOGLOBIN 31.5 pg (27.0-33.0); MEAN CORPUSCULAR HGB CONC 36.7 g/dl (32.0-36.5); MEAN CORPUSCULAR VOLUME 85.7 fl (80.0-96.0); MONO # 0.3 10^3/uL (0.0-0.8); MONO % 6.3 % (0.0-5.0); NEUTROPHILS # 2.6 10^3/uL (1.8-7.7); NEUTROPHILS % 61.6 % (36.0-66.0); PLATELET COUNT, AUTOMATED 170 10^3/uL (150-450); RED BLOOD COUNT 4.96 10^6/uL (4.30-6.10); WHITE BLOOD COUNT 4.3 10^3/uL (4.0-10.0)
[2018-11-14 14:00] VITALS: BP 118/78
[2018-11-14] MEDS: ONDANSETRON 4 MG TAB (S0181) PO PRN (14:11)
[2018-11-14 15:32] LABS: IMMUNOGLOBULIN M 78.9 MG/DL (40-230)
[2018-11-14] MEDS: MECLIZINE 12.5 MG TAB PO PRN (17:29)
--- NOTE | 2018-11-14 19:13 | ECGEPIP ---
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
[2018-11-14 20:00] VITALS: BP 125/88
[2018-11-14] MEDS: PREGABALIN 75 MG CAP(LYRICA) PO SCH (20:21)
[2018-11-14] MEDS: AMITRIPTYLINE 50 MG TAB PO SCH (20:21)
[2018-11-14] MEDS: MIRTAZAPINE 15 MG TAB PO SCH (20:21)
[2018-11-14] MEDS: PANTOPRAZOLE 40MG TAB (PROTONIX) PO SCH (20:21)
[2018-11-14] MEDS: ACETAMINOPHEN TAB 650MG DOSE (2X325MG) PO PRN (20:22)
--- NOTE | 2018-11-14 20:46 | IPN ---
DATE: 11/14/2018 He was seen at bedside today. He states that he is still feeling very weak, and has developed a dry sore and scratchy sounding voice. He denies any fevers or chills, but states that his paresthesias and numbness have not improved. He denies diarrhea or cough or sputum production. OBJECTIVE; Vitals: Temperature 96.8, pulse 72, respiratory rate 17, blood pressure 118/78, 100% on room air. General: Awake, alert and oriented: Laying in bed. Heart: Regular rate and rhythm. No murmurs, gallops or rubs. Lungs: Clear to auscultation bilaterally. No wheezes, rhonchi or rales. Abdomen: Soft, nontender. No hepatosplenomegaly Extremities: No clubbing, cyanosis or edema. Neuro: Cranial nerves intact. Decreased sensation to light touch of the lower extremities and hands. Motor strength is still weak, especially at the hip flexors and with knee extension. LABORATORY DATA CBC: WBC 4.3, hemoglobin 15.6, hematocrit 42.5, platelets 170. Chemistry: Sodium 140, potassium 4.1, chloride 109, carbon dioxide 24, BUN 15, creatinine 0.78, fasting glucose 88, calcium 8.5, total bili 0.3, AST 15, ALT 24, alkaline phosphatase 77, CRP less than 0.30, total protein 7.0, albumin 3.7, vitamin B6 pending. Vitamin B12 1631, methylmalonic acid pending, MMA pending, vitamin D 37.3, TSH 1.360 free T4 0.87. Serology for Lyme Borrelia burgdorf, chikungunya, dengue fever, strongyloides, trichinella are all pending. Rickettsia IgM antibody was 0.32. Stool ova and parasites are pending. GI panel was negative. Urine culture was negative. Peripheral smear shows no immature cells are blasts seen. IMAGING STUDIES: MRI of the thoracic spine showed no disc bulge or herniation with normal signal intensity in the thoracic vertebral bodies. Lumbar spine MRI showed diffuse disc bulge at L4-5 which abuts the thecal sac. 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 The patient is wondering if he can get a second opinion about Lyme disease. Other workup is pending right now off, so we were able to talk to interventional radiology about doing a lumbar puncture tomorrow to investigate for my. A consultation with neurology may be appropriate to see if there is any meals and like to add to the CSF workup. The patient may be eventually transferred to [facility] for further evaluation and management. We will continue to follow. My faculty preceptor for this patient encounter was physically present during the encounter and was fully available. All aspects of the patient interview, examination, medical decision making process, and medical care plan development were reviewed and approved by the faculty preceptor. The faculty preceptor is aware and concurs with the plan as stated in the body of this note and will attest to such by his/her cosignature. OCTAVIO
--- NOTE | 2018-11-14 22:07 | IPNPDOC ---
PM&R Progress Note DATE OF SERVICE: Nov 14, 2018 Boiler Tester Progress Note Subjective: Patient reporting he is nauseous and dizzy. He would like a more thorough Lyme work-up and agreed to use the nicotine patch instead of using chewing tobacco. REVIEW OF SYSTEMS: The following is a completed review of systems and has been reviewed. Review of systems otherwise unremarkable. PAIN: Patient self reports bilateral LE and bilateral hand/forearm paresthesias EYES: Negative for recent vision changes EARS, NOSE, & THROAT: no dysphagia, no rhinorrhea CARDIOVASCULAR: no chest pain or palpitations PULMONARY: Negative. Denies shortness of breath GASTROINTESTINAL: Negative for diarrhea, +nausea GENITOURINARY: Negative for dysuria or incontinence MUSCULOSKELETAL: Bilat LE weakness NEUROLOGICAL: bilateral LE and bilateral hand/forearm paresthesias HEMATOLOGICAL: + bilat LE petechiae SKIN: intact PSYCHIATRIC: denies anxiety or depression, +insomnia All other review of systems found to be negative. PHYSICAL EXAMINATION: VITAL SIGNS: Please see below. GENERAL: Pleasant and cooperative. No acute distress. Anxious, pale HEENT: PERRL. Extraocular movements intact. Clear conjunctiva CARDIOVASCULAR: Regular rate and rhythm. No murmurs, rubs, or gallops LUNGS: Clear to auscultation bilaterally. No wheezes. No rhonchi ABDOMEN: Soft, nontender, nondistended. Positive bowel sounds. Normal active bowel sounds NEUROLOGICAL: Alert and oriented times three. Cranial nerves II through XII grossly intact. Decreased sensation to light touch in dermatomes T10-S2 and C5- T1 bilaterally -negative Babinski bilat, 2+ patella and 1+achilles bilat -2+ biceps, brachioradialis EXTREMITIES: 5\5 strength bilateral upper extremities. 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 PLAN: 1. Rehab: PT/oT, assess for DMEs, inconsistencies noted on physical exam and during therapy session- patient able to activate bilateral ankle DF and EHL muscles when tested together, but appears to give way when tested individually- able to ambulate roughly 30F with RW -able to flex right knee while in one legged (left) standing position, but then when asked to actively flex his knee as an isolated movement was unable to do it 2. Cardiac: monitor for orthostatic tachycardia syndrome, Zio patch results positive for episodes of AVB and periods of bradycardia to mid-20s, will hold beta-miriam and will consider inpatient cardiology consult if symptomatic, medicine consulted -Dr. Williamson's notes from recent visit do not show AVB on EKG, will f/u with case management social worker for further work-up with [facility] cardiologists -Was in the process of getting worked up for POTS at [facility], has follow-up in December 2018- no objective orthostasis or tachycardia thus far on ARU, however ordered EKG due to persistent non-positional dizziness which showed NSR with possible right bundle branch block -discussed his case with Say from [facility] who did not recommend any intervention at this time regarding his cardiac status, but would follow-up on helping to accept him back at [facility] 3. Neuro: recently diagnosed small fiber neuropathy on affecting Bilateral LE in stocking-glove pattern and UE, possibly secondary to an acute versus chronic inflammatory demyelinating polyneuropathy- received documents to support positive skin biopsy for small fiber neuropathy -NCS/EMG studies significant for ulnar neuropathy, no F wave delay or conduction blocks or slowing noted in LE to suggest an active AIDP, confirmed with case christa Youngblood Tahiraaustin ([phone]) that Dr. Hernandez at [facility] had ordered a sensory neuropathy antibody panel in August which the results were processed incorrectly and he needs this to be re-ordered to determine if his neuropathy is an immunological process requiring IVIG treatment, per patient he has progressively gotten weaker and his paresthesias have gotten worse since the Fall, however he has not experienced worsening of symptoms while on ARU, he would like a complete neurological work-up to be done -if patient clinically declines either subjectively or objectively on exam, will transfer immediately off floor, but will continue to provide rehab at this time until dispo details completed, will consider in-house neurology evaluation tomorrow if unable to obtain clear plan of care from [facility] neurology department or if dispo plans not resolved by tomorrow- stable at this time -thoracic MR and Lumbar MR negative for transverse myelitis or SC pathology, however does heavy disc bulge at L4-L5 -heavy metal tox screen negative -currently doing metabolic work-up- thyroid wnl, vitamin B high however MMA still pending, and vitamin D levels pending -manage neuropathic pain with TCAs- Elavil 50mg qHS and Cymbalta, continue Lyrica, patient reports his paresthesias are not getting worse since his admission 4. ID: protracted GI illness from March-May 2018 with negative infectious workup, s/p doxycycline for RMSF- stool O&P work-up pending, ID consulted and planning LP tomorrow to check for Lyme, elevated IgE and Eosinophilia, parasitic serological work-up still pending, recs appreciated 5. Insomnia/Psych: Remeron for appetite enhancement and sleep and anxiety 6. DVT ppx- CLYDE stockings 8. GI: -will manage nausea with Protonix at this time, Zofran and Meclizine for dizziness 7. Dispo: ongoing discussions regarding transfer to inpatient [facility] with case management social worker Rylie Lara ([phone]) as he was inappropriately treated as an outpatient (rather than inpatient) for GI and neuropathy work-up this past summer when evacuated out of [place] for a prolonged GI illness with Guillian- Brusly type symptoms- discussed case at length with Chief neuro resident Dr. Erasmo amezcua and [place] who did not believe inpatient stay was warranted, spoke with Dr. Deal entry level drafter who had worked on his case at [facility] and expressed concern about the neuroligcal decline of Mr. Capps and agreed to facilitate a multidisciplinary approach to a possible inpatient admission acceptance. I still recommend need for repeat neurology work-up at [facility] and completion of auto-immune lab testing to better elucidate symptoms and possible empiric treatment with IVIG. Will continue to discuss case with case management social worker and look forward to speaking with Dr. Farley and continue communications with Dr. Yee regarding disposition. Patient continues to be clinically stable during this hospital stay.. Allergies Coded Allergies: No Known Allergies (Unverified , 05/08/17) Vital Signs Vital Signs Date Time Temp Pulse Resp B/P (MAP) Pulse Ox O2 Delivery O2 Flow Rate FiO2 11/14/18 14:00 96.8 72 17 118/78 (91) 100 Room Air Laboratory Data CBC/BMP Laboratory Tests 11/14/18 12:19 Red Blood Count 4.96, Mean Corpuscular Volume 85.7, Mean Corpuscular Hemoglobin 31.5, Mean Corpuscular Hemoglobin Concent 36.7 H, Red Cell Distribution Width 11.9, Neutrophils (%) (Auto) 61.6, Lymphocytes (%) (Auto) 26.1, Monocytes (%) (Auto) 6.3 H, Eosinophils (%) (Auto) 5.6 H, Basophils (%) (Auto) 0.2, Neutrophils # (Auto) 2.6, Lymphocytes # (Auto) 1.1 L, Monocytes # (Auto) 0.3, Eosinophils # (Auto) 0.2, Basophils # (Auto) 0.0 Labs 24H Laboratory Tests 2 11/14/18 12:19: Immature Granulocyte % (Auto) 0.2, White Blood Count 4.3, Red Blood Count 4.96, Hemoglobin 15.6, Hematocrit 42.5, Mean Corpuscular Volume 85.7, Mean Corpuscular Hemoglobin 31.5, Mean Corpuscular Hemoglobin Concent 36.7H, Red Cell Distribution Width 11.9, Platelet Count 170, Neutrophils (%) (Auto) 61.6, Lymphocytes (%) (Auto) 26.1, Monocytes (%) (Auto) 6.3H, Eosinophils (%) (Auto) 5.6H, Basophils (%) (Auto) 0.2, Neutrophils # (Auto) 2.6, Lymphocytes # (Auto) 1.1L, Monocytes # (Auto) 0.3, Eosinophils # (Auto) 0.2, Basophils # (Auto) 0.0, Nucleated Red Blood Cells % (auto) 0.0, Differential Slide Review Report, Peripheral Blood Smear Path Consult PERIPHERAL SMEAR, Immunoglobulin A 281.0, Immunoglobulin G 921, Immunoglobulin M 78.9, Immunoglobulin E 683.0H Microbiology Microbiology 11/13/18 Gastrointestinal Tract Panel (PCR) - Final, Complete 11/11/18 Urine Culture - Final, Complete Current Medications Current Medications Current Medications Acetaminophen (Tylenol Tab) 650 mg Q4HP PRN PO fever/MILD PAIN (PS 1-4) Last administered on 11/14/18at 20:22; Start 11/11/18 at 13:45 Amitriptyline HCl (Elavil) 50 mg QHS PO Last administered on 11/14/18 20:21; Start 11/11/18 at 21:00 Duloxetine HCl (Cymbalta) 30 mg DAILY PO Last administered on 11/14/18 08:30; Start 11/12/18 at 12:00 Home Med (Med Rec Complete!) ASDIRECTED XX ; Start 11/11/18 at 18:00; Stop 11/11/18 at 18:00; Status DC Meclizine HCl (Antivert) 12.5 mg Q6H PRN PO DIZZINESS Last administered on 11/14/18 17:29; Start 11/14/18 at 14:00 Mirtazapine (Remeron) 15 mg QPM PO Last administered on 11/14/18 20:21; Start 11/11/18 at 21:00 Nicotine (Nicoderm Cq 7 Mg) 1 patch DAILY TD ; Start 11/15/18 at 09:00 Ondansetron HCl (Zofran) 4 mg Q4HP PRN PO NAUSEA OR VOMITING Last administered on 11/14/18 14:11; Start 11/14/18 at 14:00 Pantoprazole Sodium (Protonix) 40 mg QHS PO Last administered on 11/14/18 20:21; Start 11/11/18 at 21:00 Pregabalin (Lyrica) 50 mg BID PO Last administered on 11/14/18 08:30; Start 11/12/18 at 14:30; Stop 11/14/18 at 13:59; Status DC Pregabalin (Lyrica) 75 mg BID PO Last administered on 11/14/18 20:21; Start 11/14/18 at 21:00 Propranolol HCl (Inderal) 5 mg TID PO Last administered on 11/13/18 22:00; Start 11/11/18 at 21:00; Stop 11/14/18 at 10:14; Status DC NABEEL WINTER MD Nov 14, 2018 22:07
[2018-11-15 00:08] LABS: IgG P18 AB Absent (.); IgG P23 AB Absent (.); IgG P28 AB Absent (.); IgG P30 AB Absent (.); IgG P39 AB Absent (.); IgG P41 AB Present (.); IgG P45 AB Absent (.); IgG P66 AB Absent (.); IgG P93 AB Absent (.); IgM P23 AB Absent (.); IgM P39 AB Absent (.); IgM P41 AB Absent (.); LYME IgG WB INTERPRETATION Negative (.); LYME IgM WB INTERPRETATION Negative (.)
[2018-11-15] MEDS: ACETAMINOPHEN TAB 650MG DOSE (2X325MG) PO PRN ×2 (01:20→18:20)
[2018-11-15 06:00] VITALS: BP 110/69
[2018-11-15 08:41] LABS: VITAMIN B6,PYRIDOXAL PHOSPHATE 30.9 ug/L (5.3-46.7)
[2018-11-15] MEDS: ONDANSETRON 4 MG TAB (S0181) PO PRN (09:58)
[2018-11-15] MEDS: PREGABALIN 75 MG CAP(LYRICA) PO SCH ×2 (09:58→20:19)
[2018-11-15] MEDS: NICOTINE 7 MG/24 HR TRANSDERMAL TD SCH (09:58)
[2018-11-15] MEDS: DULoxetine 30 MG CAP (CYMBALTA) PO SCH (09:58)
[2018-11-15] MEDS: MECLIZINE 12.5 MG TAB PO PRN ×2 (09:58→18:20)
[2018-11-15 11:10] LABS: APPEARANCE, CSF CLEAR (CLEAR); COLOR, CSF COLORLESS (COLORLESS); CSF TUBE# CELL CNT TUBE 1
[2018-11-15 11:16] LABS: CSF TUBE# GLU TUBE 2; CSF TUBE# TP TUBE 2; GLUCOSE CSF 56 MG/DL (40-75); TOTAL PROTEIN,CSF 48 MG/DL (15-45)
[2018-11-15 14:00] VITALS: BP 120/86
--- NOTE | 2018-11-15 16:32 | REP ---
Procedure: Fluoro guidance for lumbar puncture. History: Polyneuropathy The procedure was performed under the direct supervision of Dr. Monae. The risks and benefits of the procedure were explained to the patient and informed consent was obtained. The L3-4 interspace was localized using fluoroscopic guidance. The skin was prepped and draped in a sterile fashion. 1% lidocaine was used as a local anesthetic. Using fluoroscopic guidance a 22-gauge spinal needle was inserted and advanced into the thecal sac. 12 ml of spinal fluid was withdrawn and sent to lab. Due to technical error, no image was saved. The patient tolerated the procedure well and there were no immediate complications. 0.1 minutes of fluoro time was utilized for this procedure. Reviewed by LEONOR Christian 11/15/2018 03:30 P Electronically Signed by Miles Monae MD 11/15/2018 04:23 P
--- NOTE | 2018-11-15 17:39 | IPN ---
DATE: 11/15/2018 SUBJECTIVE: The patient is seen at bedside. He is rather frustrated with the long and arduous processes that have brought him here without any answers. He states that he did well in physical therapy, and he is really trying to push himself. He had a spinal tap done this morning so will be foregoing physical therapy today in order to try to prevent a spinal headache. He states that he still is feeling paresthesias in his lower extremities, and that the nerve pain is still quite painful despite the addition of Lyrica. He denies fevers, chills, nausea, vomiting, or diarrhea. OBJECTIVE VITAL SIGNS: Temperature 97.1, pulse 75, respiratory rate 17, blood pressure of 110/65, 95% on room air. General: Awake, alert, and oriented, lying in bed. No acute distress. HEENT: The mouth is free of sores. The posterior pharynx is mildly erythematous without lesions, exudates, or white spots. The patient has his own teeth, and dentition is fair. HEART: Regular rate and rhythm. No murmurs, gallops, or rubs. LUNGS: Clear to auscultation bilaterally. No wheezes, rhonchi, or rales. ABDOMEN: Soft, nontender. No hepatosplenomegaly. EXTREMITIES: No clubbing, cyanosis, or edema. NEUROLOGIC: Cranial nerves intact. Decreased sensation to light touch of the lower extremities and hands. Motor strength is still weak, especially at the hip flexors and knee extension. SKIN: On the patient's lower extremities, there are several small dark red, flat, pinpoint, nonblanching tolbert. They are not itchy. LABORATORY DATA CSF: Clear and colorless. CSF glucose was 56. CSF total protein was 48. Oligoclonal bands are pending. CSF Lyme IgG antibody is pending. Stool ova and parasites are still pending. Immunology: IgG 921, IgA 281, IgM 98.9, IgE 683. Lyme serology: Positive for 2 bands. The Lyme IgG 41 and Lyme IgG 58, all others negative. Western blot negative. Borrelia burgdorferi C6 less than 0.91. Rickettsia IgM 0.32. Strongyloides negative. Chikungunya virus IgM is pending. Dengue fever IgM and IgG are pending. Trichinella antibody is pending. ASSESSMENT AND PLAN: This is a 38-year-old gentleman who has evidence of small-vessel fiber neuropathy of the upper and lower extremities. Seemed to have happened after an infectious illness that occurred [facility]. We did talk to Dr. Can from infectious diseases at [facility] for a second opinion about Lyme disease. Based on our laboratory results and the patient's history, Dr. Can agreed that Lyme was probably less likely. Lumbar puncture this morning was relatively unrevealing. At this time, Dr. Win is working on transferring the patient back to [facility] for further evaluation and management, especially for a full neurology workup. My faculty preceptor for this patient encounter was physically present during the encounter and was fully available. All aspects of the patient interview, examination, medical decision making process, and medical care plan development were reviewed and approved by the faculty preceptor. The faculty preceptor is aware and concurs with the plan as stated in the body of this note and will attest to such by his/her co-signature. OCTAVIO
[2018-11-15] MEDS: PANTOPRAZOLE 40MG TAB (PROTONIX) PO SCH (20:19)
[2018-11-15] MEDS: AMITRIPTYLINE 50 MG TAB PO SCH (20:20)
[2018-11-15] MEDS: MIRTAZAPINE 15 MG TAB PO SCH (20:20)
[2018-11-15 22:00] VITALS: BP 137/89
[2018-11-16 05:47] VITALS: BP 119/73
[2018-11-16] MEDS: DULoxetine 30 MG CAP (CYMBALTA) PO SCH (09:10)
[2018-11-16] MEDS: NICOTINE 7 MG/24 HR TRANSDERMAL TD SCH (09:10)
[2018-11-16] MEDS: PREGABALIN 75 MG CAP(LYRICA) PO SCH ×2 (09:10→20:57)
--- NOTE | 2018-11-16 13:09 | IPNPDOC ---
PM&R Progress Note DATE OF SERVICE: Nov 15, 2018 [employer]door Re[employer] Specialist Progress Note Subjective: Patient reporting he is feeling ok after the LP and denies having a headache. He is happy to hear he will return to [facility] and is interested in pursing a chronic Lyme work-up. REVIEW OF SYSTEMS: The following is a completed review of systems and has been reviewed. Review of systems otherwise unremarkable. PAIN: Patient self reports bilateral LE and bilateral hand/forearm paresthesias EYES: Negative for recent vision changes EARS, NOSE, & THROAT: no dysphagia, no rhinorrhea CARDIOVASCULAR: no chest pain or palpitations PULMONARY: Negative. Denies shortness of breath GASTROINTESTINAL: Negative for diarrhea, +nausea, no incontinence GENITOURINARY: Negative for dysuria or incontinence MUSCULOSKELETAL: Bilat LE weakness NEUROLOGICAL: bilateral LE and bilateral hand/forearm paresthesias HEMATOLOGICAL: + bilat LE petechiae SKIN: intact PSYCHIATRIC: denies anxiety or depression, +insomnia All other review of systems found to be negative. PHYSICAL EXAMINATION: VITAL SIGNS: Please see below. GENERAL: Pleasant and cooperative. No acute distress. Anxious, pale HEENT: PERRL. Extraocular movements intact. Clear conjunctiva CARDIOVASCULAR: Regular rate and rhythm. No murmurs, rubs, or gallops LUNGS: Clear to auscultation bilaterally. No wheezes. No rhonchi ABDOMEN: Soft, nontender, nondistended. Positive bowel sounds. Normal active bowel sounds NEUROLOGICAL: Alert and oriented times three. Cranial nerves II through XII grossly intact. Decreased sensation to light touch in dermatomes T10-S2 and C5- T1 bilaterally -negative Babinski bilat, 2+ patella and 1+achilles bilat -2+ biceps, brachioradialis EXTREMITIES: 5\5 strength bilateral upper extremities. 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 PLAN: 1. Rehab: PT/oT, assess for DMEs, inconsistencies noted on physical exam and during therapy sessions possible due to pain, however walking slightly better today prior to LP 2. Cardiac: monitor for postural orthostatic tachycardia syndrome, Zio patch results positive for episodes of AVB and periods of bradycardia to mid-20s, will hold beta-miriam and will consider inpatient cardiology consult if symptomatic, medicine consulted-stable at this time -Dr. Williamson's notes from recent visit do not show AVB on EKG, will f/u with top case assembler for further work-up with [facility] cardiologists -Was in the process of getting worked up for POTS at [facility], has follow-up in December 2018- no objective orthostasis or tachycardia thus far on ARU, however ordered EKG due to persistent non-positional dizziness which showed NSR with possible right bundle branch block -discussed his case with Say from [facility] on 11/14/18 who did not recommend any intervention at this time regarding his cardiac status, but would follow-up on helping to accept him back at [facility] 3. Neuro: recently diagnosed small fiber neuropathy on affecting Bilateral LE in stocking-glove pattern and UE, possibly secondary to an acute versus chronic inflammatory demyelinating polyneuropathy- received documents to support positive skin biopsy for small fiber neuropathy -NCS/EMG studies significant for ulnar neuropathy, no F wave delay or conduction blocks or slowing noted in LE to suggest an active AIDP, confirmed with top case assembler Rylie Bermudez ([phone]) that Dr. Hernandez at [facility] had ordered a sensory neuropathy antibody panel in August which the results were processed incorrectly and he needs this to be re-ordered to determine if his neuropathy is an immunological process requiring IVIG treatment, per patient he has progressively gotten weaker and his paresthesias have gotten worse since the Fall, however he has not experienced worsening of symptoms while on ARU, he would like a complete neurological work-up to be done -if patient clinically declines either subjectively or objectively on exam, will transfer immediately off floor, but will continue to provide rehab at this time until dispo details completed, will consider in-initally consulted inhouse neurology who agreed to do repeat NCS/EMG, however was contacted by neurologist Dr. Polk today from [facility] stating he was willing to accept patient as inpatient status and will have a bed available immediately, discussed again with Dr. Mitchell and agreed to hold off on consult -neurologically stable at this time -thoracic MR and Lumbar MR negative for transverse myelitis or SC pathology, however does have disc bulge at L4-L5 -heavy metal tox screen negative -currently doing metabolic work-up- thyroid wnl, vitamin B 12 high however MMA still pending, and vitamin D levels low normal -manage neuropathic pain with TCAs- Elavil 50mg qHS and Cymbalta, continue Lyrica, patient reports his paresthesias are not getting worse since his admission 4. ID: protracted GI illness from March-May 2018 with negative infectious workup, s/p doxycycline for RMSF- stool O&P negative, ID consulted -LP today initial results mildly elevated CSF protein- CSF Lyme and Oligclonal bands results still pending -does have elevated IgE and Eosinophilia, parasitic serological work-up still pending, ID recs appreciated -therapy on medical hold today given LP and need to avoid exertion, instructed t o lie flat for 2 hours post-procedure, denies headache 5. Insomnia/Psych: continue Remeron for appetite enhancement and sleep and anxiety 6. DVT ppx- CLYDE stockings 8. GI: -will manage nausea with Protonix at this time, Zofran and Meclizine for dizziness 7. Dispo: ongoing discussions regarding transfer to inpatient [facility] with top case assembler Rylie Bermudez ([phone]) as he was inappropriately treated as an outpatient (rather than inpatient) for GI and neuropathy work-up this past summer when evacuated out of [place] for a prolonged GI illness with Guillian- [place] type symptoms- I recommend need for repeat neurology work-up at [facility] as an inpatient and completion of auto-immune lab testing to better elucidate symptoms and possible empiric treatment with IVIG. As of now, per Dr. Farley patient has a bed available to him and that with the help of Rylie coleman coordinate transportation from [facility] to [facility]. Patient continues to be clinically stable during this hospital stay. Allergies Coded Allergies: No Known Allergies (Unverified , 05/08/17) Vital Signs Vital Signs Date Time Temp Pulse Resp B/P (MAP) Pulse Ox O2 Delivery O2 Flow Rate FiO2 11/16/18 05:47 97.3 78 16 119/73 (88) 96 Room Air Microbiology Microbiology 11/15/18 Gram Stain - Final, Resulted 11/15/18 CSF Culture, Resulted Pending 11/13/18 Gastrointestinal Tract Panel (PCR) - Final, Complete 11/11/18 Urine Culture - Final, Complete Current Medications Current Medications Current Medications Acetaminophen (Tylenol Tab) 650 mg Q4HP PRN PO fever/MILD PAIN (PS 1-4) Last administered on 11/15/18 18:20; Start 11/11/18 at 13:45 Amitriptyline HCl (Elavil) 50 mg QHS PO Last administered on 11/15/18 20:20; Start 11/11/18 at 21:00 Duloxetine HCl (Cymbalta) 30 mg DAILY PO Last administered on 11/16/18 09:10; Start 11/12/18 at 12:00 Home Med (Med Rec Complete!) ASDIRECTED XX ; Start 11/11/18 at 18:00; Stop 11/11/18 at 18:00; Status DC Meclizine HCl (Antivert) 12.5 mg Q6H PRN PO DIZZINESS Last administered on 11/15/18 18:20; Start 11/14/18 at 14:00 Mirtazapine (Remeron) 15 mg QPM PO Last administered on 11/15/18 20:20; Start 11/11/18 at 21:00 Nicotine (Nicoderm Cq 7 Mg) 1 patch DAILY TD Last administered on 11/16/18 09:10; Start 11/15/18 at 09:00 Ondansetron HCl (Zofran) 4 mg Q4HP PRN PO NAUSEA OR VOMITING Last administered on 11/15/18at 09:58; Start 11/14/18 at 14:00 Pantoprazole Sodium (Protonix) 40 mg QHS PO Last administered on 11/15/18 20:19; Start 11/11/18 at 21:00 Pregabalin (Lyrica) 50 mg BID PO Last administered on 11/14/18 08:30; Start 11/12/18 at 14:30; Stop 11/14/18 at 13:59; Status DC Pregabalin (Lyrica) 75 mg BID PO Last administered on 11/16/18at 09:10; Start 11/14/18 at 21:00 Propranolol HCl (Inderal) 5 mg TID PO Last administered on 11/13/18 22:00; Start 11/11/18 at 21:00; Stop 11/14/18 at 10:14; Status DC NABEEL WINTER MD Nov 16, 2018 13:09
[2018-11-16 14:00] VITALS: BP 122/76
[2018-11-16] MEDS: ACETAMINOPHEN TAB 650MG DOSE (2X325MG) PO PRN (20:57)
[2018-11-16] MEDS: MIRTAZAPINE 15 MG TAB PO SCH (20:57)
[2018-11-16] MEDS: MECLIZINE 12.5 MG TAB PO PRN (20:57)
[2018-11-16] MEDS: AMITRIPTYLINE 50 MG TAB PO SCH (20:57)
[2018-11-16] MEDS: PANTOPRAZOLE 40MG TAB (PROTONIX) PO SCH (20:57)
[2018-11-16 22:00] VITALS: BP 115/77
[2018-11-17 06:00] VITALS: BP 118/61
[2018-11-17] MEDS: PREGABALIN 75 MG CAP(LYRICA) PO SCH ×2 (08:43→20:27)
[2018-11-17] MEDS: NICOTINE 7 MG/24 HR TRANSDERMAL TD SCH (08:43)
[2018-11-17] MEDS: DULoxetine 30 MG CAP (CYMBALTA) PO SCH (08:43)
[2018-11-17] MEDS: ACETAMINOPHEN TAB 650MG DOSE (2X325MG) PO PRN ×3 (08:45→20:28)
[2018-11-17] MEDS: ONDANSETRON 4 MG TAB (S0181) PO PRN (09:58)
[2018-11-17 12:50] VITALS: BP 118/69
[2018-11-17] MEDS ORDERED: EXCEDRIN MIGRAINE TABLET PO ONE (13:00)
[2018-11-17 20:00] VITALS: BP 144/87
[2018-11-17] MEDS: AMITRIPTYLINE 50 MG TAB PO SCH (20:27)
[2018-11-17] MEDS: MIRTAZAPINE 15 MG TAB PO SCH (20:27)
[2018-11-17] MEDS: PANTOPRAZOLE 40MG TAB (PROTONIX) PO SCH (20:27)
[2018-11-18 00:06] LABS: Methylmalonic Acid 167 nmol/L (0-378)
[2018-11-18 05:52] VITALS: BP 101/65
[2018-11-18] MEDS: PREGABALIN 75 MG CAP(LYRICA) PO SCH (08:34)
[2018-11-18] MEDS: DULoxetine 30 MG CAP (CYMBALTA) PO SCH (08:35)
[2018-11-18] MEDS: NICOTINE 7 MG/24 HR TRANSDERMAL TD SCH (08:35)
[2018-11-18] MEDS ORDERED: Acetaminophen Tab PO (09:18)
[2018-11-18] MEDS ORDERED: MECL12.575 PO (09:18)
[2018-11-18] MEDS ORDERED: PANT40TA3 PO (09:18)
[2018-11-18] MEDS ORDERED: ONDA4TAB5 PO (09:18)
[2018-11-18] MEDS ORDERED: DULO30CA PO (09:18)
[2018-11-18] MEDS ORDERED: MIRT15TA3 PO (09:18)
[2018-11-18] MEDS ORDERED: AMIT50TA PO (09:18)
[2018-11-18] MEDS ORDERED: NICO7PA TD (09:18)
[2018-11-18] MEDS ORDERED: LYRI75CA PO (09:18)
[2018-11-18 10:15] VITALS: BP 122/87
[2018-11-18] MEDS: ACETAMINOPHEN TAB 650MG DOSE (2X325MG) PO PRN (10:57)
[2018-11-19 10:10] LABS: DENGUE FEVER IgG AB <1.00 ISR (<1.65); DENGUE FEVER IgM AB 1.17 ISR (<1.65)
[2018-11-20 14:53] LABS: CSFLYM10 Absent (.); CSFLYM11 Absent (.); CSFLYM12 Negative (.); CSFLYM14 Absent (.); CSFLYM15 Absent (.); CSFLYM16 Absent (.); CSFLYM17 Negative (.); CSFLYM2 Absent (.); CSFLYM3 Absent (.); CSFLYM4 Absent (.); CSFLYM5 Absent (.); CSFLYM6 Absent (.); CSFLYM7 Absent (.); CSFLYM8 Absent (.); CSFLYM9 Absent (.)
== END 2018-11-18 11:01 | disposition short-term general hospital (02) | DRG 74 ==
LOC: M PM&R 14:30
PROVIDERS: ADMIT Physical Medicine & Rehabilitation; ATTEND Physical Medicine & Rehabilitation
PROC: 009U3ZX Drainage of Spinal Canal, Percutaneous Approach, Diagnostic (ICD-10-PCS; principal; 2018-11-15)
DX: G61.81 Chronic inflammatory demyelinating polyneuritis (principal); G47.00 Insomnia, unspecified; R11.10 Vomiting, unspecified; F43.10 Post-traumatic stress disorder, unspecified; G43.909 Migraine, unspecified, not intractable, without status migrainosus; R26.89 Other abnormalities of gait and mobility; F17.220 Nicotine dependence, chewing tobacco, uncomplicated; K21.9 Gastro-esophageal reflux disease without esophagitis; Z87.820 Personal history of traumatic brain injury; Z79.899 Other long term (current) drug therapy; Z91.82 Personal history of military deployment; H93.19 Tinnitus, unspecified ear; Z86.19 Personal history of other infectious and parasitic diseases

== ENCOUNTER 2018-12-26 06:54 | Outpatient (CLI) | payer OTHER ==
[2018-12-26] VITALS (12 sets, daily range): BP systolic 98–114; BP diastolic 56–84
[~2018-12-26] VITALS: Ht 180.3 cm; Wt 75.0 kg
[~2018-12-26 06:54] MED LIST changes: +ACETAMINOPHEN TAB 650MG DOSE (2X325MG) PO ONE; +ACETAMINOPHEN TAB 650MG DOSE (2X325MG) PO PRN; +AMIT50TA PO; +Acetaminophen Tab PO; +B121000T PO; +BUDE3CAP PO; +CAPS0.022 TOP; +DICL50TAB PO; +DULO1CAP2 PO; +DULO30CA PO; +LYRI75CA PO; +MECL12.575 PO; +MIRT15TA3 PO; +NICO7PA TD; +NORT25CA2 PO; +ONDA4TAB5 PO; +ONDANSETRON 4 MG ORAL DISINTEGRATING TAB (Q0162 PER 1MG) PO PRN; +PANT40TA3 PO; +RIZA5TAB PO; +TOPI25CA PO; +VITMTA PO; +ZOFR4TAB16 PO; +diphenhydrAMINE 25 MG CAP PO ONE; +diphenhydrAMINE 25 MG CAP PO PRN
[2018-12-26] MEDS ORDERED: CETIRIZINE (ZyrTEC) 10 MG TAB PO ONE (07:00)
[2018-12-26] MEDS ORDERED: diphenhydrAMINE INJ 50MG/ML VIAL (J1200) IV ONE (07:00)
[2018-12-26] MEDS ORDERED: IMMUNE GLOBULIN 10% 20 GM in APPROPRIATE DILUENT 1 EA IV ONE (07:00)
[2018-12-26] MEDS ORDERED: DILUENT IV ONE (07:00)
[2018-12-26] MEDS ORDERED: IMMUNE GLOBULIN 10% 10 GM in APPROPRIATE DILUENT 1 EA IV ONE (07:00)
[2018-12-26] MEDS ORDERED: IMMUNE GLOBULIN IV ONE (07:00)
[2018-12-26] MEDS ORDERED: EPINEPHrine INJ 1 MG/ML 1ML AMP IM ONE (07:00)
[2018-12-26] MEDS ORDERED: HYDROCORTISONE 100 MG/2 ML VIAL (J1720) IV ONE (07:00)
== END 2018-12-26 17:25 | disposition home or self-care (01) ==
LOC: M INFU 06:54
PROVIDERS: ATTEND Internal Medicine
DX: M62.81 Muscle weakness (generalized) (principal)
CPT/HCPCS: 96365; 96366; J1459

== ENCOUNTER → 2019-01-08 | Outpatient (CLI) | payer OTHER ==
[~2019-01-08] MED LIST changes: -ACETAMINOPHEN TAB 650MG DOSE (2X325MG) PO ONE; -ACETAMINOPHEN TAB 650MG DOSE (2X325MG) PO PRN; +GASTROGRAFIN SOLUTION 30ML (Q9963) As Ordered ONE; +ISOVUE-370 76% 125ML VIAL (Q9967 PER ML) As Ordered ONE; -ONDANSETRON 4 MG ORAL DISINTEGRATING TAB (Q0162 PER 1MG) PO PRN; -diphenhydrAMINE 25 MG CAP PO ONE; -diphenhydrAMINE 25 MG CAP PO PRN
--- NOTE | 2019-01-08 16:49 | REP ---
CT NECK WITH CONTRAST: HISTORY: Neoplasm. CONTRAST: Isovue-370, 100 mL Calcification is present in the right tonsil. This is secondary to previous inflammatory disease. The naso-, irena- and hypopharynx, larynx and subglottic trachea are otherwise normal in appearance. The salivary and thyroid glands are normal in size and density. Small lymph nodes less than 1 cm in size are present in the internal jugular chains, posterior triangles, submandibular and submental areas. Minimal degenerative change is present in the cervical spine. The lung apices are clear. The visualized sinuses are clear. IMPRESSION: There is no neck mass or adenopathy. Electronically Signed by Benito Medina MD 01/08/2019 04:53 P
--- NOTE | 2019-01-09 13:19 | REP ---
Clinical: Unspecified neoplasm. Technique: Axial contrast enhanced images from the thoracic inlet to the upper abdomen with coronal and sagittal re-formations using 100 ml Isovue 370 intravenous contrast material. Comparison: None. Findings: The bilateral lung nathan are well-aerated, symmetric and clear. No acute consolidation, nodule or mass lesion. No pleural effusion. No pneumothorax. Tracheobronchial tree is patent. No axillary, hilar, or mediastinal adenopathy. The mediastinum demonstrates normal thoracic aorta, pulmonary vasculature and heart/pericardium. Surrounding musculoskeletal structures are intact and normal. Limited upper abdomen demonstrates normal bilateral adrenal glands. Impression: Normal contrast enhanced chest CT. No acute mediastinal or pleuroparenchymal process. Electronically Signed by Yves Hernandez MD 01/09/2019 01:11 P
--- NOTE | 2019-01-09 13:25 | REP ---
Clinical: Unspecified neoplasm. Technique: Axial contrast enhanced images from the lung bases to the pubic symphysis using oral (per protocol) and 100 ml Isovue 370 intravenous contrast material with coronal and sagittal re-formations. Comparison: 07/23/2017. Findings: Lung bases are clear. Visualized heart and pericardium normal. Liver, spleen, pancreas, gallbladder, bilateral adrenal glands and kidneys are normal. The enteric system is without obstruction or acute inflammatory process. Normal terminal ileum and appendix are identified in the right lower quadrant. Pelvis demonstrates normal bladder and age-appropriate prostate/seminal vesicles. Sigmoid diverticula noted without acute diverticulitis. No ascites. No free air. No adenopathy. Abdominal aorta and vasculature without aneurysm or dissection. Musculoskeletal structures are intact without focal osseous abnormality. Impression: Normal contrast enhanced CT of the abdomen and pelvis. No acute abdominopelvic pathology appreciated. Electronically Signed by Yves Hernandez MD 01/09/2019 01:17 P
== END ==
LOC: M RAD 13:52
PROVIDERS: ATTEND Internal Medicine Infectious Disease
DX: D49.9 Neoplasm of unspecified behavior of unspecified site (principal); G13.0 Paraneoplastic neuromyopathy and neuropathy
CPT/HCPCS: 70491; 71260; 74177; Q9963; Q9967

== ENCOUNTER 2019-01-27 06:53 | Outpatient (CLI) | payer OTHER ==
[~2019-01-27] VITALS: Ht 180.3 cm; Wt 75.0 kg
[2019-01-27] VITALS (8 sets, daily range): BP systolic 107–127; BP diastolic 71–81
[~2019-01-27 06:53] MED LIST changes: -DULO30CA PO; +DULO30CA9 PO; -GASTROGRAFIN SOLUTION 30ML (Q9963) As Ordered ONE; -ISOVUE-370 76% 125ML VIAL (Q9967 PER ML) As Ordered ONE
[2019-01-27] MEDS ORDERED: KETOROLAC 30 MG/ML VIAL (J1885) IV PRN (07:00)
[2019-01-27] MEDS ORDERED: CETIRIZINE (ZyrTEC) 10 MG TAB PO ONE (07:00)
[2019-01-27] MEDS ORDERED: IMMUNE GLOBULIN 10% 10 GM in APPROPRIATE DILUENT 1 EA IV ONE ×2 (07:00→07:45)
[2019-01-27] MEDS ORDERED: IMMUNE GLOBULIN IV ONE (07:00)
[2019-01-27] MEDS ORDERED: ONDANSETRON 4 MG ORAL DISINTEGRATING TAB (Q0162 PER 1MG) PO PRN (07:00)
[2019-01-27] MEDS ORDERED: DILUENT IV ONE (07:00)
[2019-01-27] MEDS ORDERED: IMMUNE GLOBULIN 10% 20 GM in APPROPRIATE DILUENT 1 EA IV ONE ×2 (07:00→07:45)
[2019-01-27] MEDS ORDERED: EPINEPHrine INJ 1 MG/ML 1ML AMP IM PRN (07:00)
[2019-01-27] MEDS ORDERED: ACETAMINOPHEN TAB 650MG DOSE (2X325MG) PO ONE (07:00)
[2019-01-27] MEDS ORDERED: diphenhydrAMINE 25 MG CAP PO ONE (07:00)
[2019-01-27] MEDS ORDERED: diphenhydrAMINE INJ 50MG/ML VIAL (J1200) IV PRN (07:00)
[2019-01-27] MEDS ORDERED: HYDROCORTISONE 100 MG/2 ML VIAL (J1720) IV PRN (07:00)
[2019-01-27] MEDS ORDERED: ACETAMINOPHEN TAB 650MG DOSE (2X325MG) PO PRN (07:00)
[2019-01-27] MEDS ORDERED: diphenhydrAMINE 25 MG CAP PO PRN (07:00)
[2019-01-27] MEDS ORDERED: IMMUNE GLOBULIN 10% 5 GM in APPROPRIATE DILUENT 1 EA IV ONE (07:45)
[2019-01-27] MEDS ORDERED: RANI1SYP PO (07:45)
[2019-01-27] MEDS ORDERED: IMMUNE GLOBULIN 10% 40 GM in APPROPRIATE DILUENT 1 EA IV ONE (07:45)
== END 2019-01-27 13:30 | disposition home or self-care (01) ==
LOC: M INFU 06:53
PROVIDERS: ATTEND Internal Medicine
DX: M62.81 Muscle weakness (generalized) (principal)
CPT/HCPCS: 96365; 96366; J1459

== ENCOUNTER → 2019-02-17 | Outpatient (REF) | payer OTHER ==
[~2019-02-17] MED LIST changes: +RANI1SYP PO
[2019-02-17 18:45] LABS: THYROID STIMULATING HORMONE 0.976 uIU/ML (0.358-3.740)
[2019-02-20 00:06] LABS: ALDOLASE 5.8 U/L (3.3-10.3); ANTI JO-1 ANTIBODIES <0.2 AI (0.0-0.9)
== END ==
LOC: M SFHCPLAZ 14:58
PROVIDERS: ATTEND Internal Medicine Rheumatology
DX: R53.1 Weakness (principal)

== ENCOUNTER 2019-02-26 06:56 | Outpatient (CLI) | payer OTHER ==
[2019-02-26] VITALS (8 sets, daily range): BP systolic 107–117; BP diastolic 66–83
[~2019-02-26] VITALS: Ht 180.3 cm; Wt 75.0 kg
[2019-02-26] MEDS ORDERED: HYDROCORTISONE 100 MG/2 ML VIAL (J1720) IV PRN (07:00)
[2019-02-26] MEDS ORDERED: IMMUNE GLOBULIN 10% 10 GM in APPROPRIATE DILUENT 1 EA IV ONE ×12 (07:00→07:15)
[2019-02-26] MEDS ORDERED: diphenhydrAMINE INJ 50MG/ML VIAL (J1200) IV PRN (07:00)
[2019-02-26] MEDS ORDERED: ONDANSETRON 4 MG ORAL DISINTEGRATING TAB (Q0162 PER 1MG) PO PRN (07:00)
[2019-02-26] MEDS ORDERED: IMMUNE GLOBULIN 10% 20 GM in APPROPRIATE DILUENT 1 EA IV ONE ×8 (07:00→07:15)
[2019-02-26] MEDS ORDERED: diphenhydrAMINE 25 MG CAP PO PRN (07:00)
[2019-02-26] MEDS ORDERED: diphenhydrAMINE 25 MG CAP PO ONE (07:00)
[2019-02-26] MEDS ORDERED: KETOROLAC 30 MG/ML VIAL (J1885) IV PRN (07:00)
[2019-02-26] MEDS ORDERED: CETIRIZINE (ZyrTEC) 10 MG TAB PO PRN (07:00)
[2019-02-26] MEDS ORDERED: EPINEPHrine INJ 1 MG/ML 1ML AMP IM PRN (07:00)
[2019-02-26] MEDS ORDERED: IMMUNE GLOBULIN 10% 40 GM in APPROPRIATE DILUENT 1 EA IV ONE ×8 (07:00→07:15)
[2019-02-26] MEDS ORDERED: ACETAMINOPHEN TAB 650MG DOSE (2X325MG) PO PRN (07:15)
[2019-02-26] MEDS ORDERED: ACETAMINOPHEN TAB 650MG DOSE (2X325MG) PO ONE (07:15)
== END 2019-02-26 15:10 | disposition home or self-care (01) ==
LOC: M INFU 06:56
PROVIDERS: ATTEND Internal Medicine
DX: M62.81 Muscle weakness (generalized) (principal)
CPT/HCPCS: 96365; 96366; J1459

== ENCOUNTER → 2019-03-07 | Outpatient (CLI) | payer OTHER ==
--- NOTE | 2019-03-07 15:16 | REP ---
MR BRAIN WITH CONTRAST: HISTORY: Pineal cyst. CONTRAST: ProHance 15 mL. Previous studies are not available for comparison. There is no intraparenchymal hemorrhage, mass, or midline shift. There are no enhancing intraparenchymal lesions. The ventricular system is normal in appearance. An incidental 9 mm pineal cyst is present. There is no extracerebral collection. The sinuses are clear. IMPRESSION: Limited examination demonstrating no intracranial lesion. Electronically Signed by Benito Medina MD 03/07/2019 03:27 P
== END ==
LOC: M RAD 09:52
PROVIDERS: ATTEND Physician Assistant
DX: E34.8 Other specified endocrine disorders (principal)

== ENCOUNTER 2019-04-30 06:58 | Outpatient (CLI) | payer OTHER ==
[~2019-04-30] VITALS: Ht 177.8 cm; Wt 75.0 kg
[2019-04-30] VITALS (9 sets, daily range): BP systolic 108–129; BP diastolic 65–79
[~2019-04-30 06:58] MED LIST changes: -DULO1CAP2 PO; +DULO1CAP5 PO; -TOPI25CA PO; +TOPI25CA3 PO
[2019-04-30] MEDS ORDERED: diphenhydrAMINE 25 MG CAP PO PRN (08:45)
[2019-04-30] MEDS ORDERED: HYDROCORTISONE 100 MG/2 ML VIAL (J1720) IV PRN (08:45)
[2019-04-30] MEDS ORDERED: diphenhydrAMINE 25 MG CAP PO ONE (08:45)
[2019-04-30] MEDS ORDERED: ACETAMINOPHEN TAB 650MG DOSE (2X325MG) PO ONE (08:45)
[2019-04-30] MEDS ORDERED: diphenhydrAMINE INJ 50MG/ML VIAL (J1200) IV PRN (08:45)
[2019-04-30] MEDS ORDERED: ACETAMINOPHEN TAB 650MG DOSE (2X325MG) PO PRN (08:45)
[2019-04-30] MEDS ORDERED: EPINEPHrine INJ 1 MG/ML 1ML AMP IM PRN (08:45)
[2019-04-30] MEDS ORDERED: IMMUNE GLOBULIN 10% 5 GM in APPROPRIATE DILUENT 1 EA IV ONE (09:00)
[2019-04-30] MEDS ORDERED: IMMUNE GLOBULIN 10% 40 GM in APPROPRIATE DILUENT 1 EA IV ONE (09:00)
[2019-04-30] MEDS ORDERED: IMMUNE GLOBULIN 10% 30 GM in APPROPRIATE DILUENT 1 EA IV ONE (09:00)
== END 2019-04-30 14:30 | disposition home or self-care (01) ==
LOC: M INFU 06:58
PROVIDERS: ATTEND Psychiatry & Neurology Neurology
DX: M62.81 Muscle weakness (generalized) (principal)
CPT/HCPCS: 96365; 96366; J1459

== ENCOUNTER 2019-05-27 07:00 | Outpatient (CLI) | payer OTHER ==
[~2019-05-27] VITALS: Ht 182.9 cm; Wt 70.0 kg
[2019-05-27] VITALS (8 sets, daily range): BP systolic 98–114; BP diastolic 59–80
[2019-05-27] MEDS ORDERED: IMMUNE GLOBULIN 10% 10 GM in APPROPRIATE DILUENT 1 EA IV ONE (07:15)
[2019-05-27] MEDS ORDERED: IMMUNE GLOBULIN 10% 40 GM in APPROPRIATE DILUENT 1 EA IV ONE (07:15)
[2019-05-27] MEDS ORDERED: IMMUNE GLOBULIN 10% 5 GM in APPROPRIATE DILUENT 1 EA IV ONE (07:15)
[2019-05-27] MEDS ORDERED: IMMUNE GLOBULIN 10% 20 GM in APPROPRIATE DILUENT 1 EA IV ONE (07:15)
[2019-05-27] MEDS ORDERED: diphenhydrAMINE INJ 50MG/ML VIAL (J1200) IV PRN (07:30)
[2019-05-27] MEDS ORDERED: EPINEPHrine INJ 1 MG/ML 1ML AMP IM PRN (07:30)
[2019-05-27] MEDS ORDERED: ACETAMINOPHEN TAB 650MG DOSE (2X325MG) PO ONE (07:30)
[2019-05-27] MEDS ORDERED: KETOROLAC 30 MG/ML VIAL (J1885) IV PRN (07:30)
[2019-05-27] MEDS ORDERED: CETIRIZINE (ZyrTEC) 10 MG TAB PO PRN (07:30)
[2019-05-27] MEDS ORDERED: HYDROCORTISONE 100 MG/2 ML VIAL (J1720) IV PRN (07:30)
[2019-05-27] MEDS ORDERED: ONDANSETRON 4 MG ORAL DISINTEGRATING TAB (Q0162 PER 1MG) SL PRN (07:30)
[2019-05-27] MEDS ORDERED: ACETAMINOPHEN TAB 650MG DOSE (2X325MG) PO PRN (07:30)
[2019-05-27] MEDS ORDERED: diphenhydrAMINE 25 MG CAP PO ONE (07:45)
[2019-05-27] MEDS ORDERED: diphenhydrAMINE 25 MG CAP PO PRN (07:45)
== END 2019-05-27 14:00 ==
LOC: M INFU 07:00
PROVIDERS: ATTEND Physician Assistant
DX: M62.81 Muscle weakness (generalized) (principal)
CPT/HCPCS: 96365; 96366; J1459

== ENCOUNTER 2019-06-24 11:53 | Outpatient (CLI) | payer OTHER ==
[2019-06-24] VITALS (9 sets, daily range): BP systolic 105–118; BP diastolic 58–75
[~2019-06-24] VITALS: Ht 177.8 cm; Wt 75.0 kg
[2019-06-24] MEDS ORDERED: IMMUNE GLOBULIN 10% 20 GM in APPROPRIATE DILUENT 1 EA IV ONE (12:30)
[2019-06-24] MEDS ORDERED: ONDANSETRON 4 MG ORAL DISINTEGRATING TAB (Q0162 PER 1MG) SL PRN (12:30)
[2019-06-24] MEDS ORDERED: diphenhydrAMINE 25 MG CAP PO ONE (12:30)
[2019-06-24] MEDS ORDERED: CETIRIZINE (ZyrTEC) 10 MG TAB PO PRN (12:30)
[2019-06-24] MEDS ORDERED: HYDROCORTISONE 100 MG/2 ML VIAL (J1720) IV PRN (12:30)
[2019-06-24] MEDS ORDERED: EPINEPHrine INJ 1 MG/ML 1ML AMP IM PRN (12:30)
[2019-06-24] MEDS ORDERED: IMMUNE GLOBULIN 10% 40 GM in APPROPRIATE DILUENT 1 EA IV ONE (12:30)
[2019-06-24] MEDS ORDERED: diphenhydrAMINE 25 MG CAP PO PRN (12:30)
[2019-06-24] MEDS ORDERED: IMMUNE GLOBULIN 10% 5 GM in APPROPRIATE DILUENT 1 EA IV ONE (12:30)
[2019-06-24] MEDS ORDERED: KETOROLAC 30 MG/ML VIAL (J1885) IV PRN (12:30)
[2019-06-24] MEDS ORDERED: ACETAMINOPHEN TAB 650MG DOSE (2X325MG) PO ONE (12:30)
[2019-06-24] MEDS ORDERED: diphenhydrAMINE INJ 50MG/ML VIAL (J1200) IV PRN (12:30)
[2019-06-24] MEDS ORDERED: IMMUNE GLOBULIN 10% 10 GM in APPROPRIATE DILUENT 1 EA IV ONE (12:30)
[2019-06-24] MEDS ORDERED: ACETAMINOPHEN TAB 650MG DOSE (2X325MG) PO PRN (12:30)
== END 2019-06-24 18:15 | disposition home or self-care (01) ==
LOC: M INFU 11:53
DX: M62.81 Muscle weakness (generalized) (principal)
CPT/HCPCS: 96365; 96366; J1459

== ENCOUNTER 2019-09-12 08:40 | Emergency (ER) | payer OTHER ==
[~2019-09-12] VITALS: Ht 180.3 cm; Wt 77.3 kg
[2019-09-12] MEDS ORDERED: KETOROLAC 60 MG/2 ML VIAL (J1885) IM ONE (09:45)
[2019-09-12] MEDS ORDERED: NAPR-837 PO (10:37)
[2019-09-12] MEDS ORDERED: CYCL5TAB PO (10:37)
[2019-09-12 10:57] VITALS: BP 109/75
--- NOTE | 2019-09-12 10:57 | REP ---
LUMBOSACRAL SPINE SERIES: Five views of the lumbosacral spine performed. There is no compression fracture or malalignment with normal lumbar lordosis. Disc spaces are well preserved. Posterior elements are intact. IMPRESSION: No fracture or dislocation. Electronically Signed by Phillip Burks MD 09/15/2019 09:09 A
== END 2019-09-12 11:06 | disposition home or self-care (01) ==
LOC: M ED 08:40 → EDBD 08:40 → M ED 11:06
DX: S39.012A Strain of muscle, fascia and tendon of lower back, initial encounter (principal); X58.XXXA Exposure to other specified factors, initial encounter; Y92.89 Other specified places as the place of occurrence of the external cause
CPT/HCPCS: 72110; 96372; 99284; J1885

== ENCOUNTER 2019-10-07 06:52 | Outpatient (CLI) | payer OTHER ==
[2019-10-07] VITALS (8 sets, daily range): BP systolic 113–131; BP diastolic 71–81
[~2019-10-07] VITALS: Ht 180.3 cm; Wt 77.3 kg
[~2019-10-07 06:52] MED LIST changes: +CYCL5TAB PO; +NAPR-837 PO
[2019-10-07] MEDS ORDERED: diphenhydrAMINE 25 MG CAP PO SCH (07:00)
[2019-10-07] MEDS ORDERED: ACETAMINOPHEN TAB 650MG DOSE (2X325MG) PO SCH (07:01)
[2019-10-07] MEDS ORDERED: IBUP200C28 PO (07:08)
[2019-10-07] MEDS ORDERED: ACETAMINOPHEN TAB 650MG DOSE (2X325MG) PO PRN (07:15)
[2019-10-07] MEDS ORDERED: IMMUNE GLOBULIN 10% 20 GM in IV 1 EA IV ONE (07:15)
[2019-10-07] MEDS ORDERED: ONDANSETRON 4 MG TAB (S0181) PO PRN (07:15)
[2019-10-07] MEDS ORDERED: IMMUNE GLOBULIN 10% 10 GM in IV 1 EA IV ONE (07:15)
[2019-10-07] MEDS ORDERED: IMMUNE GLOBULIN 10% 40 GM in IV 1 EA IV ONE (07:15)
[2019-10-07] MEDS ORDERED: diphenhydrAMINE 25 MG CAP PO PRN (07:15)
[2019-10-07] MEDS ORDERED: KETOROLAC 30 MG/ML VIAL (J1885) IV PRN (07:15)
[2019-10-07] MEDS ORDERED: IMMUNE GLOBULIN 10% 5 GM in IV 1 EA IV ONE (07:15)
[2019-10-07] MEDS ORDERED: CETIRIZINE (ZyrTEC) 10 MG TAB PO PRN (07:15)
== END 2019-10-07 13:00 | disposition home or self-care (01) ==
LOC: M INFU 06:52
PROVIDERS: ATTEND Psychiatry & Neurology Neurology
DX: G60.3 Idiopathic progressive neuropathy (principal)
CPT/HCPCS: 96365; 96366; J1459

== ENCOUNTER 2019-11-05 06:51 | Outpatient (CLI) | payer OTHER ==
[~2019-11-05] VITALS: Ht 185.4 cm; Wt 75.0 kg
[2019-11-05] VITALS (7 sets, daily range): BP systolic 95–113; BP diastolic 55–79
[~2019-11-05 06:51] MED LIST changes: +IBUP200C28 PO; -MECL12.575 PO; +MECL12.589 PO; +ONDA-83 PO; -ONDA4TAB5 PO
[2019-11-05] MEDS ORDERED: [UNRECOGNIZED DRUG - CODE] IV (07:12)
[2019-11-05] MEDS ORDERED: diphenhydrAMINE 25 MG CAP PO PRN ×2 (07:15→11:30)
[2019-11-05] MEDS ORDERED: ONDANSETRON 4 MG TAB (S0181) PO PRN (07:15)
[2019-11-05] MEDS ORDERED: KETOROLAC 30 MG/ML VIAL (J1885) IV PRN (07:15)
[2019-11-05] MEDS ORDERED: diphenhydrAMINE INJ 50MG/ML VIAL (J1200) IV PRN (07:30)
[2019-11-05] MEDS ORDERED: CETIRIZINE (ZyrTEC) 5 MG/5 ML UDC DYE FREE PO ONE ×2 (07:30→08:00)
[2019-11-05] MEDS ORDERED: ACETAMINOPHEN TAB 650MG DOSE (2X325MG) PO ONE (07:30)
[2019-11-05] MEDS ORDERED: diphenhydrAMINE 25 MG CAP PO ONE ×2 (07:30→07:45)
[2019-11-05] MEDS ORDERED: EPINEPHrine INJ 1 MG/ML 1ML VIAL IM PRN (07:30)
[2019-11-05] MEDS ORDERED: HYDROCORTISONE 100 MG/2 ML VIAL (J1720 PER 1) IV PRN (07:45)
[2019-11-05] MEDS ORDERED: IMMUNE GLOBULIN 10% 20 GM in IV 1 EA IV ONE (08:00)
[2019-11-05] MEDS ORDERED: IMMUNE GLOBULIN 10% 10 GM in IV 1 EA IV ONE (08:00)
[2019-11-05] MEDS ORDERED: IMMUNE GLOBULIN 10% 5 GM in IV 1 EA IV ONE (08:00)
[2019-11-05] MEDS ORDERED: IMMUNE GLOBULIN 10% 40 GM in IV 1 EA IV ONE (08:00)
[2019-11-05] MEDS ORDERED: ACETAMINOPHEN TAB 650MG DOSE (2X325MG) PO PRN (13:30)
== END 2019-11-05 13:15 | disposition home or self-care (01) ==
LOC: M INFU 06:51
PROVIDERS: ATTEND Psychiatry & Neurology Neurology
DX: G60.3 Idiopathic progressive neuropathy (principal)
CPT/HCPCS: 96365; 96366; J1459

== ENCOUNTER 2019-12-03 06:42 | Outpatient (CLI) | payer OTHER ==
[2019-12-03] VITALS (8 sets, daily range): BP systolic 106–121; BP diastolic 63–82
[~2019-12-03] VITALS: Ht 180.3 cm; Wt 80.9 kg
[~2019-12-03 06:42] MED LIST changes: +[UNRECOGNIZED DRUG - CODE] IV
[2019-12-03] MEDS ORDERED: IMMUNE GLOBULIN 10% 5 GM in IV 1 EA IV ONE (07:00)
[2019-12-03] MEDS ORDERED: diphenhydrAMINE 25 MG CAP PO PRN (07:00)
[2019-12-03] MEDS ORDERED: KETOROLAC 30 MG/ML VIAL (J1885) IV PRN (07:00)
[2019-12-03] MEDS ORDERED: IMMUNE GLOBULIN 10% 10 GM in IV 1 EA IV ONE (07:00)
[2019-12-03] MEDS ORDERED: ONDANSETRON 4 MG TAB (S0181) PO PRN (07:00)
[2019-12-03] MEDS ORDERED: ACETAMINOPHEN TAB 650MG DOSE (2X325MG) PO ONE (07:00)
[2019-12-03] MEDS ORDERED: IMMUNE GLOBULIN 10% 20 GM in IV 1 EA IV ONE (07:00)
[2019-12-03] MEDS ORDERED: ACETAMINOPHEN TAB 650MG DOSE (2X325MG) PO PRN (07:00)
[2019-12-03] MEDS ORDERED: diphenhydrAMINE 25 MG CAP PO ONE (07:00)
[2019-12-03] MEDS ORDERED: IMMUNE GLOBULIN 10% 40 GM in IV 1 EA IV ONE (07:00)
[2019-12-03] MEDS ORDERED: CETIRIZINE (ZyrTEC) 5 MG/5 ML UDC DYE FREE PO ONE (07:00)
== END 2019-12-03 12:40 | disposition home or self-care (01) ==
LOC: M INFU 06:42
PROVIDERS: ATTEND Psychiatry & Neurology Neurology
DX: G60.3 Idiopathic progressive neuropathy (principal)
CPT/HCPCS: 96365; 96366; J1459

== ENCOUNTER 2020-01-01 06:37 | Outpatient (CLI) | payer OTHER ==
[2020-01-01] VITALS (9 sets, daily range): BP systolic 93–117; BP diastolic 53–78
[~2020-01-01] VITALS: Ht 180.3 cm; Wt 75.0 kg
[2020-01-01] MEDS ORDERED: ACETAMINOPHEN TAB 650MG DOSE (2X325MG) PO PRN (07:00)
[2020-01-01] MEDS ORDERED: ACETAMINOPHEN TAB 650MG DOSE (2X325MG) PO ONE (07:00)
[2020-01-01] MEDS ORDERED: diphenhydrAMINE 25 MG CAP PO PRN (07:00)
[2020-01-01] MEDS ORDERED: ONDANSETRON 4 MG TAB (S0181) PO PRN (07:00)
[2020-01-01] MEDS ORDERED: KETOROLAC 30 MG/ML VIAL (J1885) IV PRN (07:00)
[2020-01-01] MEDS ORDERED: CETIRIZINE (ZyrTEC) 10 MG TAB PO PRN (07:00)
[2020-01-01] MEDS ORDERED: diphenhydrAMINE 25 MG CAP PO ONE (07:00)
[2020-01-01] MEDS ORDERED: IMMUNE GLOBULIN 10% 40 GM in IV 1 EA IV ONE (08:00)
[2020-01-01] MEDS ORDERED: IMMUNE GLOBULIN 10% 10 GM in IV 1 EA IV ONE (08:00)
[2020-01-01] MEDS ORDERED: IMMUNE GLOBULIN 10% 20 GM in IV 1 EA IV ONE (08:00)
[2020-01-01] MEDS ORDERED: IMMUNE GLOBULIN 10% 5 GM in IV 1 EA IV ONE (08:00)
== END 2020-01-01 12:45 | disposition home or self-care (01) ==
LOC: M INFU 06:37
PROVIDERS: ATTEND Psychiatry & Neurology Neurology
DX: G60.3 Idiopathic progressive neuropathy (principal)
CPT/HCPCS: 96365; 96366; J1459

== ENCOUNTER 2020-02-10 06:36 | Outpatient (CLI) | payer OTHER ==
[~2020-02-10] VITALS: Ht 180.3 cm; Wt 75.0 kg
[2020-02-10] VITALS (9 sets, daily range): BP systolic 104–117; BP diastolic 62–82
[~2020-02-10 06:36] MED LIST changes: -PROHANCE 279.3MG/ML 15ML VIAL (A9576) As Ordered ONE
[2020-02-10] MEDS ORDERED: diphenhydrAMINE 25MG CAP PO PRN (07:00)
[2020-02-10] MEDS ORDERED: IMMUNE GLOBULIN 10% 120 GM in IV 1 EA IV ONE (07:00)
[2020-02-10] MEDS ORDERED: diphenhydrAMINE 25MG CAP PO ONE (07:00)
[2020-02-10] MEDS ORDERED: KETOROLAC 30 MG/ML 1ML VIAL IV PRN (07:00)
[2020-02-10] MEDS ORDERED: CETIRIZINE (ZyrTEC) 10 MG TAB PO PRN (07:00)
[2020-02-10] MEDS ORDERED: IMMUNE GLOBULIN 10% 20 GM in IV 1 EA IV ONE (07:00)
[2020-02-10] MEDS ORDERED: ACETAMINOPHEN TAB 650MG DOSE (2X325MG) PO ONE (07:00)
[2020-02-10] MEDS ORDERED: ONDANSETRON 4 MG TAB PO PRN (07:00)
[2020-02-10] MEDS ORDERED: IMMUNE GLOBULIN 10% 10 GM in IV 1 EA IV ONE (07:00)
[2020-02-10] MEDS ORDERED: ACETAMINOPHEN TAB 650MG DOSE (2X325MG) PO PRN (07:00)
== END 2020-02-10 15:45 | disposition home or self-care (01) ==
LOC: M INFU 06:36
PROVIDERS: ATTEND Psychiatry & Neurology Neurology
DX: G60.3 Idiopathic progressive neuropathy (principal); R47.1 Dysarthria and anarthria; M51.36 Other intervertebral disc degeneration, lumbar region; M51.37 Other intervertebral disc degeneration, lumbosacral region
CPT/HCPCS: 36415; 70553; 72158; 80053; 80061; 82175; 82595; 82784; 83036; 83516; 83655; 83825; 83921; 84165; 84182; 84207; 84425; 84443; 85025; 85652; 86038; 86255; 86256; 86334; 86335; 96365; 96366; A9576; J1459

== ENCOUNTER → 2020-02-10 | Outpatient (CLI) | payer OTHER ==
[~2020-02-10] MED LIST changes: +PROHANCE 279.3MG/ML 15ML VIAL (A9576) As Ordered ONE
[2020-02-10 08:46] LABS: BASO % 0.6 % (0.0-1.0); EOS # 0.2 10^3/uL (0.0-0.5); HEMATOCRIT 38.9 % (42.0-52.0); HEMOGLOBIN 14.3 g/dl (13.5-17.5); LYMPH # 1.7 10^3/uL (1.5-5.0); LYMPH % 30.5 % (24.0-44.0); MEAN CORPUSCULAR HEMOGLOBIN 31.7 pg (27.0-33.0); MEAN CORPUSCULAR VOLUME 86.3 fl (80.0-96.0); MONO # 0.3 10^3/uL (0.0-0.8); MONO % 5.9 % (0.0-5.0); NEUTROPHILS # 3.3 10^3/uL (1.5-8.5); RED BLOOD COUNT 4.51 10^6/uL (4.30-6.10); WHITE BLOOD COUNT 5.4 10^3/uL (4.0-10.0)
[2020-02-10 09:13] LABS: MEAN CORPUSCULAR HGB CONC 36.8 g/dl (32.0-36.5); PLATELET COUNT, AUTOMATED 155 10^3/uL (150-450)
[2020-02-10 09:17] LABS: ERYTHROCYTE SEDIMENTATION RATE 2 mm/hr (0-15)
[2020-02-10 09:27] LABS: HEMOGLOBIN A1c 4.7 %
[2020-02-10 10:15] LABS: ALBUMIN 3.4 GM/DL (3.2-5.2); ALT/SGPT 29 U/L (12-78); BILIRUBIN,TOTAL 0.4 MG/DL (0.2-1.0); BLOOD UREA NITROGEN 8 MG/DL (7-18); CALCIUM LEVEL 8.1 MG/DL (8.5-10.1); CARBON DIOXIDE LEVEL 25 MEQ/L (21-32); CHLORIDE LEVEL 108 MEQ/L (98-107); CHOLESTEROL LEVEL 112 MG/DL (<200); CHOLESTEROL RISK RATIO 2.666 (<5); CREATININE FOR GFR 0.83 MG/DL (0.70-1.30); GLOMERULAR FILTRATION RATE > 60.0 (>60); GLUCOSE, FASTING 89 MG/DL (70-100); HDL CHOLESTEROL 42 MG/DL (>40); LDL CHOLESTEROL 60 MG/DL (<100); NON-HDL-C 70 MG/DL; POTASSIUM SERUM 3.8 MEQ/L (3.5-5.1); SODIUM LEVEL 140 MEQ/L (136-145); TOTAL PROTEIN 6.5 GM/DL (6.4-8.2); TRIGLYCERIDES LEVEL 49 MG/DL (<150)
[2020-02-11 09:48] LABS: CRYOGLOBULINS NEGATIVE (NEGATIVE)
--- NOTE | 2020-02-11 10:10 | REP ---
MRI LUMBAR SPINE WITH AND WITHOUT CONTRAST: COMPARISON: TECHNIQUE: Sequences obtained in the sagittal and axial planes. Images are obtained prior to and following the intravenous administration of 15 mL ProHance. Vertebral bodies are normal in height and are well aligned with normal lumbar lordosis. Normal bone marrow signal is seen with no edema or bone lesion. There is loss of water signal and disc degeneration at L4-5 and L5-S1. There is slight disc space narrowing at L5-S1. The conus is unremarkable. No significant disc bulging or herniation is seen at L1-2, L2-3 or L3-4. There is no neural foraminal narrowing at any of these levels nor is there spinal stenosis. At L4-5, there is very mild diffuse disc bulging slightly effacing the anterior thecal sac. There are mild hypertrophic degenerative changes at the posterior facets. There is no central canal stenosis or foraminal narrowing. At L5-S1, there is minimal diffuse disc bulging with the tear of the annulus. There is slight impression upon the anterior thecal sac. There are mild hypertrophic degenerative changes of the posterior facet joints. There is no central canal stenosis or neural foraminal narrowing. No abnormal enhancement is seen. IMPRESSION: Mild degenerative disc changes L4-5, and L5-S1. There is slight diffuse disc bulging at both levels with no significant central canal stenosis or foraminal narrowing. No abnormal enhancement. Electronically Signed by Phillip Burks MD 02/11/2020 11:18 A
--- NOTE | 2020-02-11 10:34 | REPVR ---
PROCEDURE INFORMATION: Exam: MR Head Without and With Contrast Exam date and time: 02/10/2020 4:45 PM Age: 39 years old Clinical indication: Weakness, extremity; Bilateral; Patient HX: PT states severe bouts of neuropathy as well as paralysis; Additional info: Idiopathic progressive neuropathy TECHNIQUE: Imaging protocol: MR of the head without and with intravenous contrast. Contrast material: Prohance; Contrast volume: 15 ml; Contrast route: IV; COMPARISON: MRI-Brain W/CON 03/07/2019 11:21 AM FINDINGS: Brain: Normal. No acute infarct. No hemorrhage. No significant white matter disease. No edema. No abnormal intracranial enhancement. Ventricles: Normal. No ventriculomegaly. Bones/joints: Unremarkable. Soft tissues: Unremarkable. Sinuses: Normal as visualized. No acute sinusitis. Mastoid air cells: Normal as visualized. No mastoid effusion. Orbits: Unremarkable. IMPRESSION: No acute findings. Electronically signed by: Adam Alexander On 02/11/2020 10:25:16 AM
[2020-02-13 00:06] LABS: ANTINUCLEAR ANTIBODIES DIRECT Negative (Negative); ARSENIC BLOOD 7 ug/L (2-23); LEAD BLOOD None Detected ug/dL (0-4); MERCURY BLOOD None Detected ug/L (0.0-14.9); Methylmalonic Acid 157 nmol/L (0-378); VITAMIN B1 LEVEL WHOLE BLOOD 154.5 nmol/L (66.5-200.0)
== END ==
LOC: M RAD 06:54
PROVIDERS: ATTEND Family Medicine
DX: G60.3 Idiopathic progressive neuropathy (principal); R47.1 Dysarthria and anarthria; M51.36 Other intervertebral disc degeneration, lumbar region; M51.37 Other intervertebral disc degeneration, lumbosacral region

== ENCOUNTER 2020-04-07 06:55 | Outpatient (CLI) | payer OTHER ==
[2020-04-07] VITALS (9 sets, daily range): BP systolic 97–125; BP diastolic 54–78
[~2020-04-07] VITALS: Ht 180.3 cm; Wt 75.0 kg
[~2020-04-07 06:55] MED LIST changes: -MECL12.589 PO; +MECL12.590 PO; +PANT40TA29 PO; -PANT40TA3 PO
[2020-04-07] MEDS ORDERED: diphenhydrAMINE 25MG CAP PO ONE (07:15)
[2020-04-07] MEDS ORDERED: ACETAMINOPHEN TAB 650MG DOSE (2X325MG) PO ONE (07:15)
[2020-04-07] MEDS ORDERED: IMMUNE GLOBULIN 10% 120 GM in IV 1 EA IV ONE (07:15)
[2020-04-07] MEDS ORDERED: IMMUNE GLOBULIN 10% 20 GM in IV 1 EA IV ONE (07:15)
[2020-04-07] MEDS ORDERED: KETOROLAC 30 MG/ML 1ML VIAL IV PRN (07:15)
[2020-04-07] MEDS ORDERED: IMMUNE GLOBULIN 10% 10 GM in IV 1 EA IV ONE (07:15)
[2020-04-07] MEDS ORDERED: diphenhydrAMINE 50MG/ML VIAL (J1200) IV PRN (07:30)
[2020-04-07] MEDS ORDERED: ONDANSETRON 4 MG TAB PO PRN (07:30)
[2020-04-07] MEDS ORDERED: CETIRIZINE (ZyrTEC) 10 MG TAB PO PRN (07:30)
[2020-04-07] MEDS ORDERED: HYDROCORTISONE 100 MG/2 ML VIAL (J1720 PER 1) IV PRN (07:30)
[2020-04-07] MEDS ORDERED: EPINEPHrine INJ 1 MG/ML 1ML AMP IM PRN (07:30)
[2020-04-07] MEDS ORDERED: diphenhydrAMINE 25MG CAP PO PRN (11:00)
[2020-04-07] MEDS ORDERED: ACETAMINOPHEN TAB 650MG DOSE (2X325MG) PO PRN (13:00)
== END 2020-04-07 16:00 | disposition home or self-care (01) ==
LOC: M INFU 06:55
PROVIDERS: ATTEND Psychiatry & Neurology Neurology
DX: G60.9 Hereditary and idiopathic neuropathy, unspecified (principal)